=== PATIENT | female | born 1955 | race Two or more races ===

== ENCOUNTER 2018-12-12 11:34 | Inpatient (IN) | payer BC, MEDICAID ==
[~2018-12-12] VITALS: Ht 167.6 cm; Wt 111.8 kg
[~2018-12-12 11:34] MED LIST: BUTACAP64 PO; FOLI1TAB6; INSLANTI; PANT40T PO
[2018-12-12 12:31] LABS: INR 0.98 (0.9-1.15); Partial Thromboplastin Time 27.1 sec (23.78-33.04); Prothrombin Time 10.5 sec (9.27-12.13)
[2018-12-12 12:36] LABS: Albumin 2.3 g/dL (3.4-5.0); Magnesium 1.3 mg/dL (1.6-2.6); Potassium 3.6 mmol/L (3.5-5.1)
[2018-12-12 12:44] LABS: BUN/Creatinine Ratio 3.5; Bilirubin, Total 0.5 mg/dL (0.2-1.0); Total Protein 6.6 g/dL (6.4-8.2)
[2018-12-12 12:54] LABS: Basophils # (auto) 0.1 uL; Basophils % (auto) 0.6 % (0.0-2.0); Eosinophils # (auto) 0.2 uL; Eosinophils % (auto) 1.2 % (0.0-7.0); Hematocrit 34.5 % (36.0-46.0); Hemoglobin 11.4 g/dL (12.2-16.2); Lymphocytes # (auto) 1.1 uL; Monocytes % (auto) 6.4 % (0.0-12.0); Neutrophils # (auto) 13.5 uL; Neutrophils % (auto) 84.8 % (37.0-80.0); Platelet Count (auto) 199 10^3/uL (140-450); Red Blood Cells 3.67 10^6/uL (4.0-5.20); Red Cell Distribution Width 14.9 % (11.8-14.3); White Blood Cell 15.9 10^3/uL (4.4-10.8)
[2018-12-12] MEDS ORDERED: ACETAMINOPHEN 325 MG TAB PO ONE (14:45)
[2018-12-12 14:47] LABS: Basophils # (auto) 0.1 uL; Basophils % (auto) 0.7 % (0.0-2.0); Eosinophils # (auto) 0.1 uL; Eosinophils % (auto) 0.9 % (0.0-7.0); Hematocrit 34.1 % (36.0-46.0); Hemoglobin 11.4 g/dL (12.2-16.2); Lymphocytes # (auto) 1.1 uL; Mean Corpuscular Hemoglobin 31.4 pg (28.0-32.0); Mean Corpuscular Hgb Conc. 33.4 g/dL (32.0-36.0); Mean Corpuscular Volume 93.9 fL (80.0-100.0); Monocytes # (auto) 0.9 uL; Neutrophils % (auto) 85.4 % (37.0-80.0); Nucleated Red Blood Cells % 0.1 %; Platelet Count (auto) 233 10^3/uL (140-450); Red Blood Cells 3.63 10^6/uL (4.0-5.20); Red Cell Distribution Width 14.9 % (11.8-14.3); White Blood Cell 15.3 10^3/uL (4.4-10.8)
[2018-12-12 15:02] LABS: INR 0.98 (0.9-1.15); Prothrombin Time 10.5 sec (9.27-12.13)
[2018-12-12 15:04] LABS: Albumin 2.2 g/dL (3.4-5.0); BUN/Creatinine Ratio 2.7; Potassium 3.6 mmol/L (3.5-5.1)
[2018-12-12 15:07] LABS: Bilirubin, Total 0.5 mg/dL (0.2-1.0); Total Protein 6.8 g/dL (6.4-8.2)
[2018-12-12 15:08] LABS: Lactic Acid w/Reflex 3.3 mmol/L (0.4-2.0)
[2018-12-12] MEDS ORDERED: NOREPINEPHRINE 8 MG/250ML KIT 250 ML IV SCH (15:31)
[2018-12-12] MEDS ORDERED: NOREPINEPHRINE 8 MG/250ML KIT 250 ML IV ONE (15:36)
[2018-12-12] MEDS ORDERED: MORPHINE SULFATE 4 MG/ML SYR/VIAL IV PRN (16:00)
[2018-12-12] MEDS ORDERED: NITROGLYCERIN 0.4 MG SL TAB SL PRN (16:00)
[2018-12-12] MEDS ORDERED: SODIUM CHLORIDE 0.9% 500 ML IV ONE (16:00)
[2018-12-12] MEDS ORDERED: VANCOMYCIN PER PHARMACY 0 MG IV SCH (16:00)
[2018-12-12] MEDS ORDERED: MORPHINE SULFATE 4 MG/ML SYR/VIAL ONE (16:52)
[2018-12-12] MEDS: MORPHINE SULF INJ 2 MG/ML SYRINGE 1ML IV PRN ×2 (17:13→21:39)
[2018-12-12] MEDS: NOREPINEPHRINE 8 MG/250ML KIT 250 ML IV SCH (17:14)
[2018-12-12] MEDS: HYDROcodone-ACET 5/325MG TAB PO PRN (17:25)
[2018-12-12] MEDS: IPRATROPIUM BROM 0.5 MG/2.5ML INH SOL NEB SCH (19:20)
[2018-12-12] MEDS: ALBUTEROL SULF 2.5 MG/0.5ML(0.5%) NEB SOLN NEB SCH (19:20)
[2018-12-12] MEDS ORDERED: VANCOMYCIN 1GM/250ML 250 ML IV ONE (20:00)
[2018-12-12] MEDS: PIPERACILLIN-TAZOB 2.25GM 50 ML IV SCH (23:15)
[2018-12-13] MEDS: HYDROcodone-ACET 5/325MG TAB PO PRN (00:45)
[2018-12-13 01:03] VITALS: BP 120/75
[2018-12-13] MEDS: MORPHINE SULF INJ 2 MG/ML SYRINGE 1ML IV PRN ×3 (04:26→18:09)
[2018-12-13] MEDS: ONDANSETRON HCL 4 MG/2 ML VIAL IV PRN (04:45)
[2018-12-13 05:42] LABS: Basophils # (auto) 0.1 uL; Basophils % (auto) 0.6 % (0.0-2.0); Eosinophils # (auto) 0.2 uL; Eosinophils % (auto) 1.3 % (0.0-7.0); Hemoglobin 10.4 g/dL (12.2-16.2); Lymphocytes # (auto) 0.8 uL; Mean Corpuscular Hemoglobin 31.9 pg (28.0-32.0); Mean Corpuscular Hgb Conc. 33.6 g/dL (32.0-36.0); Mean Corpuscular Volume 94.8 fL (80.0-100.0); Monocytes # (auto) 0.8 uL; Monocytes % (auto) 5.7 % (0.0-12.0); Neutrophils # (auto) 11.8 uL; Neutrophils % (auto) 86.4 % (37.0-80.0); Platelet Count (auto) 204 10^3/uL (140-450); Red Blood Cells 3.27 10^6/uL (4.0-5.20); Red Cell Distribution Width 14.9 % (11.8-14.3); White Blood Cell 13.6 10^3/uL (4.4-10.8)
[2018-12-13 06:02] LABS: BUN/Creatinine Ratio 2.9; Potassium 3.4 mmol/L (3.5-5.1)
[2018-12-13] MEDS: IPRATROPIUM BROM 0.5 MG/2.5ML INH SOL NEB SCH ×4 (06:03→19:35)
[2018-12-13] MEDS: ALBUTEROL SULF 2.5 MG/0.5ML(0.5%) NEB SOLN NEB SCH ×4 (06:03→19:35)
[2018-12-13] MEDS ORDERED: DEXTROSE (50%) 50ML SYRG IV PRN (06:45)
[2018-12-13] MEDS: InsuLIN REG 1unit/0.01ml Soln (100units/ml) SC SCH ×4 (06:47→20:00)
[2018-12-13] MEDS: VASOPRESSIN 50 UNITS in D5W 5% 247.5 ML IV SCH (07:00)
[2018-12-13] MEDS ORDERED: ENOXAPARIN SOD 100 MG/1 ML SYRINGE SC ONE (08:45)
[2018-12-13] MEDS: ACCU-CHEK COMFORT CURVE STRIP VI SCH ×4 (08:50→20:00)
[2018-12-13] MEDS: PIPERACILLIN-TAZOB 2.25GM 50 ML IV SCH ×2 (10:30→22:26)
[2018-12-13] MEDS ORDERED: LIDOCAINE 2%HCL (LOCAL ANESTH.) INJ 20ML MDV ONE (14:12)
[2018-12-13] MEDS ORDERED: IODIXANOL 320MG/ML 100ML BTL IV ONE ×2 (14:13→16:27)
[2018-12-13] MEDS ORDERED: fentaNYL CITRATE 100 MCG/2 ML VL ONE (14:51)
[2018-12-13] MEDS ORDERED: ANGIOMAX 250 MG VIAL IV ONE (14:51)
[2018-12-13] MEDS ORDERED: MIDAZOLAM HCL 1MG/1ML-2 ML VIAL ONE (14:52)
[2018-12-13] MEDS ORDERED: SODIUM CHL 0.9% 50 ML ONE (14:52)
[2018-12-13] MEDS: SODIUM CHLORIDE 0.9% 1,000 ML IV SCH (15:00)
--- NOTE | 2018-12-13 15:03 | NUR ---
WOUND CARE NOTE: Patient cannot be assessed at this time. Patient has been in cathlab since 1440. Will follow up with consult after cathlab.
[2018-12-13] MEDS: NOREPINEPHRINE 8 MG/250ML KIT 250 ML IV SCH (15:48)
[2018-12-13] MEDS ORDERED: EPTIFIBATIDE INJ (2MG/ML) 10ML VIAL IV ONE (16:36)
[2018-12-13] MEDS ORDERED: EPTIFIBATIDE DRIP(0.75MG/ML) 100 ML IV ONE (16:38)
[2018-12-13] MEDS ORDERED: SODIUM CHLORIDE 0.9% 500 ML IV ONE (17:30)
[2018-12-13] MEDS: CLOPIDOGREL BISULFATE 75 MG TAB PO SCH (19:08)
[2018-12-13 19:49] LABS: Basophils # (auto) 0.2 uL; Eosinophils # (auto) 0.2 uL; Eosinophils % (auto) 0.8 % (0.0-7.0); Hemoglobin 10.3 g/dL (12.2-16.2); Lymphocytes # (auto) 0.7 uL; Lymphocytes % (auto) 4.1 % (10.0-50.0); Mean Corpuscular Hemoglobin 30.5 pg (28.0-32.0); Mean Corpuscular Hgb Conc. 31.1 g/dL (32.0-36.0); Mean Corpuscular Volume 97.9 fL (80.0-100.0); Monocytes # (auto) 0.9 uL; Monocytes % (auto) 5.3 % (0.0-12.0); Neutrophils % (auto) 88.8 % (37.0-80.0); Nucleated Red Blood Cells % 0.1 %; Platelet Count (auto) 245 10^3/uL (140-450); Red Blood Cells 3.37 10^6/uL (4.0-5.20); Red Cell Distribution Width 15.6 % (11.8-14.3)
[2018-12-13 22:45] VITALS: BP 111/46
--- NOTE | 2018-12-13 23:00 | NUR ---
ARRIVAL NOTE PT ARRIVED TO ICU FROM SR. PRICING ANALYST AND PLACED IN ROOM 102. PT ATTACHED TO ICU MONITOR. VS ON ARRIVAL, HR111, RR24, BP 111/46, O2 95%. PT ALERT AND ORIENTEDX4. PT ABLE TO ASSIST WITH TURNS. PT ORIENTED TO NIGHT NURSE, CALL LIGHT, HOSPITAL POLICY AND VISITING HOURS. DRESSING ON RIGHT GROIN HAS MINIMAL BLOOD. AREA AROUND GROIN INSERTION SITE SOFT AND NON TENDER. PULSES IN BOTH LOWER EXTREMITIES HEARD WITH DOPPLER. PT DENIES PAIN EXCEPT WHEN TURNING AT THIS TIME. RECEIVED PT ON 22 MCG OF LEVO. IV SITE 20 IN BOTH RIGHT AND LEFT AC. IV'S BENIGN. BED LOCKED AND IN LOWEST POSITION, SAFETY PRECAUTIONS IN PLACE. WILL MONITOR PT CAREFULLY.
[2018-12-13 23:19] VITALS: BP 111/46
[2018-12-14] VITALS (82 sets, daily range): BP systolic 68–147; BP diastolic 33–76
--- NOTE | 2018-12-14 04:10 | NUR ---
WOUND CARE PHOTOS TAKEN OF BOTH FEET. FORM PLACED IN WOUND CARE FOLDER.
[2018-12-14] MEDS: ACCU-CHEK COMFORT CURVE STRIP VI SCH ×6 (04:19→20:29)
[2018-12-14] MEDS: InsuLIN REG 1unit/0.01ml Soln (100units/ml) SC SCH ×6 (04:19→20:29)
--- NOTE | 2018-12-14 05:40 | NUR ---
PT CONFUSED, THINKS "NUHA" IS IN THE ROOM TALKING WITH HER, REORIENTED PT. PT DOES NOT APPEAR TO BE IN ANY DISTRESS. WILL CONTINUE WITH CARE.
[2018-12-14] MEDS: ALBUTEROL SULF 2.5 MG/0.5ML(0.5%) NEB SOLN NEB SCH ×4 (06:07→18:59)
[2018-12-14] MEDS: IPRATROPIUM BROM 0.5 MG/2.5ML INH SOL NEB SCH ×4 (06:07→18:59)
[2018-12-14 07:25] LABS: Hematocrit 27.6 % (36.0-46.0); Hemoglobin 8.9 g/dL (12.2-16.2); Mean Corpuscular Hemoglobin 30.4 pg (28.0-32.0); Mean Corpuscular Hgb Conc. 32.3 g/dL (32.0-36.0); Mean Corpuscular Volume 94.1 fL (80.0-100.0); Platelet Count (auto) 267 10^3/uL (140-450); Red Blood Cells 2.94 10^6/uL (4.0-5.20); Red Cell Distribution Width 14.9 % (11.8-14.3)
[2018-12-14 07:36] LABS: Albumin 1.7 g/dL (3.4-5.0); Calcium 7.6 mg/dL (8.5-10.1); Magnesium 1.5 mg/dL (1.6-2.6); Potassium 3.5 mmol/L (3.5-5.1)
[2018-12-14 07:40] LABS: BUN/Creatinine Ratio 3.1; Bilirubin, Total 0.4 mg/dL (0.2-1.0); Total Protein 5.9 g/dL (6.4-8.2)
--- NOTE | 2018-12-14 07:50 | NUR ---
ASSESSMENT DONE AT THIS TIME. PT IS A/O X4 BUT IS FORGETFUL AND ASKS INAPPROPRIATE QUESTIONS "WHERE IS [place]" "IS THAT MAN STILL IN HERE". REORIENTED. ABD SOFT NONTENDER; HAS PD CATH LLQ, SITE CLEAN. DOES HER PD AT NIGHT. RT GROIN IS VERY TENDER TO TOUCH, SITE IS CLEAN; SURROUNDING TISSUE EDEMATOUS BUT SOFT WITH FAIR PULSE. BILAT PEDAL PULSES AUSCULTATED VIA DOPPLER, LT FT IS WARMER THAN RT. TIPS OF LT TOES CYANOTIC. HAS MUCH PAIN IN LT LEG; REPOSITIONING HELPS.
[2018-12-14 07:54] LABS: INR 1.08 (0.9-1.15); Partial Thromboplastin Time 46.4 sec (23.78-33.04); Prothrombin Time 11.5 sec (9.27-12.13)
[2018-12-14] MEDS: MORPHINE SULF INJ 2 MG/ML SYRINGE 1ML IV PRN ×2 (07:55→22:07)
[2018-12-14 07:57] LABS: Lactic Acid w/Reflex 5.5 mmol/L (0.4-2.0)
[2018-12-14 08:09] LABS: Basophils % (manual) 0 (0.0-2.0); Blast Cells 0; Eosinophils % (manual) 0 (0-7); Metamyelocytes % 0; Myelocytes % 0; Promyelocytes % 0; Reactive Lymphocytes 0
[2018-12-14 08:18] LABS: Band Neutrophils % (manual) 7; Lymphocytes % (manual) 2 (10.0-50.0); Monocytes % (manual) 1 (0-12)
--- NOTE | 2018-12-14 09:30 | NUR ---
DR. NINO IN. UPDATED ON CONNDITION. HE EXAMINED FT AND RT GROIN. WE REVIEWED ANTICOAGULANTS AND SHE IS TO REMAIN ON COUMADIN, PLAVIX AND LOVENOX. HE SPOKE WITH PT AND ABOUT PROCEDURE YESTERDAY AND POC.
[2018-12-14] MEDS ORDERED: WARFARIN SODIUM 2.5 MG TAB PO SCH (10:00)
[2018-12-14] MEDS: PANTOPRAZOLE 40 MG TAB PO SCH (10:27)
[2018-12-14] MEDS: ENOXAPARIN SOD 100 MG/1 ML SYRINGE SC SCH (10:27)
[2018-12-14] MEDS: CLOPIDOGREL BISULFATE 75 MG TAB PO SCH (10:27)
[2018-12-14] MEDS: PIPERACILLIN-TAZOB 2.25GM 50 ML IV SCH ×2 (10:27→22:03)
--- NOTE | 2018-12-14 11:30 | NUR ---
DR. BEARD HERE. UPDATED ON CONDITION, LEVOPHED TITRATION
--- NOTE | 2018-12-14 12:00 | NUR ---
REASSESS GROIN SOFT, LESS EDEMATOUS. PEDAL PULSES REMAIN STRONG VIA DOPPLER. CONT WITH PERIODS CONFUSION AND RESTLESSNESS
[2018-12-14] MEDS: NOREPINEPHRINE 8 MG/250ML KIT 250 ML IV SCH ×2 (12:31→20:29)
[2018-12-14] MEDS: SODIUM CHLORIDE 0.9% 1,000 ML IV SCH (16:30)
--- NOTE | 2018-12-14 16:49 | NUR ---
WOUND CARE NOTE: Wound care consult received from nursing. Patient is a 63 yo female admitted for septic shock. Patient with a history of ESRD on PD/HD, diabetes, metastatic lung cancer, [place], and CVA. Patient is resting, no signs/symptoms of pain. Last Dung score is 10. Spouse at bedside. Reviewed photos taken on admission by nursing. Reviewed photos and discussed with bedside RN, Any. Patient noted to have several scabs to right foot toes. No open draining wounds noted. No other open wounds. RECOMMENDATIONS: Dietary consult; Turn q2hrs; Nursing to cleanse skin with mild soap and water, pat dry, apply moisturizing lotion to bilateral upper and lower extremities BID/PRN, apply ZGUARD to buttocks BID/PRN soiling; wound care team to follow while Dung is <18.
--- NOTE | 2018-12-14 17:30 | NUR ---
RENITA LOADED THE PERITONEAL DIALYSIS MACHINE INSTRUCTIONS ON HOW TO RUN REC'D. HE REQUESTED WE START AT 1900.
--- NOTE | 2018-12-14 17:58 | NUR ---
REASSESS PULSES REMAIN VIA DOPPLER. HAVING INCREASED PERIODS QUIET THEN RESTLESS AND ITCHING.LEVOPHED IS STILL AT 15MCG, UNABLE TO DECREASE ANY FURTHER. RT GROIN SOFT
--- NOTE | 2018-12-14 19:00 | NUR ---
PERITONEAL DIALYSIS STARTED
--- NOTE | 2018-12-14 19:14 | NUR ---
DR. MAX RETURNED CALL NO EXTUBATION. RT BANUELOS Addendum: 12/14/18 at 1929 by Any Espinosa RN KULWANT MELARA
--- NOTE | 2018-12-14 19:30 | NUR ---
PATIENT ASKED FOR BEDPAN. SMALL THICK LIQUID DUSKY GREEN STOOL. PERICARE DONE. ZGUARD APPLIED. PT STATED THAT HER ANNE-MARIE AREA IS SORE. DOPPLER LEFT PEDAL...STRONG, REGULAR.
--- NOTE | 2018-12-14 19:41 | NUR ---
ADMITTED ON 12/12/2018 FOR SEVERE LEFT LEG PAIN. OVEREDGE MACHINE OPERATOR PROCEDURE: REMOVED CLOTS AND NOW HAVE A PEDAL PULSE WITH DOPPLER. LEFT FOOT IS WARMER THAN RIGHT. SMALL SCABBED AREAS ON BOTH FEET/TOES. ON COUMADIN/PLAVIX/LOVENOX. TIPS OF TOES ARE PURPLE. PERITONEAL DIALYSIS STARTED AT 1900. LEFT ABDOMINAL PERITONEAL CATHETER TO AUTOMATED MACHINE. DWELL 1 OF 4. SITE OF PERITONEAL CATHETER IS CLEAN AND DRY. LEVOPHED FOR BLOOD PRESSURE SUPPORT. NSR WITHOUT ECTOPY. PERIPHERAL 20 G IN RAC AND LAC. NS AT 60CC/HR. LEVOPHED AT 15 MCG/MIN. HAS A RIGHT GROIN DRESSING THAT IS CLEAN, DRY. NO HEMATOMA AT SITE. PT IS BLIND. INTRODUCED MYSELF. PATIENT IS ON A BEDPAN WITH LIQUID DUSKY GREEN STOOLS. PAINFUL FOR HER TO TURN TO LEFT SIDE. PAIN: BACK PAIN.
--- NOTE | 2018-12-14 20:30 | NUR ---
PATIENT STATED THAT THE CREAM ON HER ANNE-MARIE AREA WAS NOT TAKING THE STING OUT. WHEN WE TURNED HER SHE HAD A LIQUID STOOL AGAIN. ANNE-MARIE CARE, CHANGED THE PAD. SHE THEN HAD ANOTHER INCONTINENT LIQUID DUSKY GREEN STOOL. PERICARE DONE. ISSAC APPLIED. COMPLAINED OF A SORE THROAT. GAVE HER SOME ICE CHIPS.
--- NOTE | 2018-12-14 22:00 | NUR ---
CALLING OUT A LOT COMPLAINING OF ANNE-MARIE AREA PAIN, SORE THROAT. WHEN YOU TURN HER SHE IS VERY PAINFUL. MORPHINE GIVEN. SR, 1ST DEGREE AV BLOCK. NO ECTOPY.
--- NOTE | 2018-12-14 23:46 | NUR ---
FINGERS ARE COLD, UNABLE TO ALLIGATOR SHEAR OPERATOR PULSE OX. PLACED HAND/ARM IN A WARM BLANKET
[2018-12-15] VITALS (82 sets, daily range): BP systolic 53–127; BP diastolic 28–84
[2018-12-15] MEDS: InsuLIN REG 1unit/0.01ml Soln (100units/ml) SC SCH ×6 (00:07→21:34)
[2018-12-15] MEDS: ACCU-CHEK COMFORT CURVE STRIP VI SCH ×6 (00:08→21:34)
[2018-12-15] MEDS: SODIUM CHLORIDE 0.9% 1,000 ML IV SCH ×2 (00:20→04:00)
--- NOTE | 2018-12-15 01:26 | NUR ---
ASKING FOR MORPHINE. ALLERGIC TO CODEINE IN [facility]. NO RESULTS ON BEDPAN. NSR WITHOUT ECTOPY. PUT PULSE OX ON RIGHT EAR. FINGERS WOULD NOT RESIN COATER.
[2018-12-15] MEDS: MORPHINE SULF INJ 2 MG/ML SYRINGE 1ML IV PRN ×2 (01:38→21:49)
[2018-12-15] MEDS: NOREPINEPHRINE 8 MG/250ML KIT 250 ML IV SCH (04:00)
[2018-12-15 04:48] LABS: INR 1.6 (0.9-1.15); Partial Thromboplastin Time 62.5 sec (23.78-33.04); Prothrombin Time 16.7 sec (9.27-12.13)
[2018-12-15 04:55] LABS: Lactic Acid w/Reflex 4.7 mmol/L (0.4-2.0)
--- NOTE | 2018-12-15 05:00 | NUR ---
PERITONEAL DIALYSIS FINISHED. DISCONNECTED SYSTEM. NEW CAP APPLIED. PERITONEAL SITE CLEANED WITH CHLOROPREP AND DRESSED WITH A BIFURCATED DRESSING AND SECURED WITH TAPE. RIGHT GROIN DRESSING REMOVED. SITE SHOWS NO REDNESS OR SWELLING. SMALL HEMATOMA AT SITE. CLEANED WITH CHLOROPREP AND REDRESSED. COVERED WITH CLEAR DRESSING. DOPPLER BOTH PEDALS. GOOD PULSE WITH DOPPLER. RIGHT FOOT COOLER THAN LEFT. LOTS OF TROUBLE TONIGHT WITH THE CUFF STAYING IN PLACE.
[2018-12-15 05:01] LABS: Albumin 1.3 g/dL (3.4-5.0); BUN/Creatinine Ratio 3.5; Calcium 6.1 mg/dL (8.5-10.1); Magnesium 1.4 mg/dL (1.6-2.6)
[2018-12-15 05:03] LABS: Bilirubin, Total 0.3 mg/dL (0.2-1.0); Total Protein 4.9 g/dL (6.4-8.2)
[2018-12-15 05:45] LABS: Basophils # (auto) 0 uL; Basophils % (auto) 0.2 % (0.0-2.0); Eosinophils # (auto) 0.1 uL; Eosinophils % (auto) 0.3 % (0.0-7.0); Hematocrit 22.2 % (36.0-46.0); Hemoglobin 7.3 g/dL (12.2-16.2); Lymphocytes # (auto) 0.6 uL; Lymphocytes % (auto) 3.2 % (10.0-50.0); Mean Corpuscular Hemoglobin 31.3 pg (28.0-32.0); Mean Corpuscular Volume 94.7 fL (80.0-100.0); Monocytes # (auto) 1.1 uL; Monocytes % (auto) 5.8 % (0.0-12.0); Neutrophils # (auto) 17.8 uL; Neutrophils % (auto) 90.5 % (37.0-80.0); Platelet Count (auto) 249 10^3/uL (140-450); Red Blood Cells 2.35 10^6/uL (4.0-5.20); Red Cell Distribution Width 15.3 % (11.8-14.3); White Blood Cell 19.6 10^3/uL (4.4-10.8)
[2018-12-15] MEDS: ALBUTEROL SULF 2.5 MG/0.5ML(0.5%) NEB SOLN NEB SCH ×4 (06:57→19:00)
[2018-12-15] MEDS: IPRATROPIUM BROM 0.5 MG/2.5ML INH SOL NEB SCH ×4 (06:57→19:00)
--- NOTE | 2018-12-15 08:00 | NUR ---
ASSESSMENT PULSES STILL OBTAINED VIA DOPPLER. IS MORE MOBILE. LOC UNCHANGED-YELLS WHENEVER TOUCHED OR MOVED. BP IS HARD TO OBTAIN AT TIMES. FREQUENT NEED TO CHANGE SITES, CUFF, CUFF SIZE. IV RT AC HARD TO FLUSH BUT ABLE TO DRAW BLOOD FROM
[2018-12-15] MEDS: VASOPRESSIN 50 UNITS in D5W 5% 247.5 ML IV SCH (08:36)
[2018-12-15] MEDS ORDERED: VANCOMYCIN 1GM/250ML 250 ML IV ONE (09:00)
[2018-12-15] MEDS: PANTOPRAZOLE 40 MG TAB PO SCH (09:49)
[2018-12-15] MEDS: CLOPIDOGREL BISULFATE 75 MG TAB PO SCH (09:49)
[2018-12-15] MEDS: ENOXAPARIN SOD 100 MG/1 ML SYRINGE SC SCH (09:50)
[2018-12-15] MEDS: PIPERACILLIN-TAZOB 2.25GM 50 ML IV SCH ×2 (09:50→21:48)
--- NOTE | 2018-12-15 10:30 | NUR ---
IV RT AC LEAKING. MIDLINE PLACED RT UPPER ARM WITH EASE.
[2018-12-15] MEDS ORDERED: MAGNESIUM SULFATE 1GM/100ML 100 ML IV ONE (11:00)
--- NOTE | 2018-12-15 11:13 | NUR ---
MIDLINE INSERTION MIDLINE INSERTION TO R UPPER ARM VIA THE BASILIC VEIN. 18G 10 CM BLOOD RETURN OBTAINED AND FLUSHES EASILY. SECURED WITH [employer], SECUREMENT DEVICE AND TRANSPARENT DRESSING
--- NOTE | 2018-12-15 11:44 | NUR ---
NUTRITION CONSULT/ASSESSMENT NOTES Please refer to link notes of nutrition screen form filed under the intervention section of the plan of care for further details. Est. Needs: 1800 kcal to 2300 kcal (20-25 kcal/kgBW), 92 gms to 138 gms pro (1.0-1.5 gms/kgBW d/t ESRD on PD, severe hypoalbuminemia). Will continue to monitor pertinent labs and reassess nutrient needs prn Thank you for this consult. Addendum: 12/15/18 at [address] Amended: Links added.
[2018-12-15] MEDS ORDERED: POTASSIUM EFFERVESENT TAB 25 MEQ GT ONE (12:00)
--- NOTE | 2018-12-15 12:30 | NUR ---
CONT DIFFICULT TO OBTAIN BP. LEVOPHED HAS REMAINED AT 18MCG. DR. BEARD WAS IN;UPDATED ON CONDITION.
[2018-12-15] MEDS ORDERED: WARFARIN SODIUM 5 MG TAB PO ONE (17:00)
--- NOTE | 2018-12-15 18:51 | NUR ---
PERITONEAL DIALYSIS BEGUN
--- NOTE | 2018-12-15 20:00 | NUR ---
ADMITTED WITH HYPONATREMIA, SEPTIC SHOCK, GENERALIZED WEAKNESS AND SEVERE LEFT LEG PAIN. FROM ER WENT TO PARENT AIDE WHERE THEY REMOVED CLOTS FROM THE LEFT LEG VESSELS AND OPENED UP THE PULSE IN THE LEFT FOOT. WE NOW DOPPLER THE PULSE IN BOTH FEET. TIPS OF TOES ARE PURPLE AND TOES ON BOTH FEET HAVE SCABS. NO OPEN WOUNDS. NOW HAS A MIDLINE IN THE GRACE AND A LEFT AC 20 GUAGE. RIGHT GROIN DRESSING IS CLEAN AND DRY. TINY HEMATOMA AT SITE OF ENTRY FROM THE PARENT AIDE PROCEDURE. PERITONEAL DIALYSIS SETUP BY JUST BEFORE 1900. AUTOMATIC PERITONEAL DIALYSIS MACHINE RUNNING. DRESSING AT THE SITE OF PERITONEAL CATHETER IS CLEAN AND DRY. NORMAL SALINE AT 60CC/HR AND LEVOPHED AT 15 MCG/MIN. NSR WITHOUT ECTOPY. PATIENT STATED SHE HAS BEEN BLIND FOR 3 YEARS . CAN ONLY SEE SHADOWS. RECEIVED MAG SULFATE 1 GM, 50 MEQ OF KCL PO AND ONE UNIT OF PACKED CELLS FOR A HG OF 7.3. ON A RENAL DIET AND IS CURRENTLY NOT EATING MUCH OF WHAT IS OFFERED. ECHO: EF 60%. ORIENTED AND YET HAS MOMENTARY STATEMENT OF CONFUSION. SOME SHORT TERM MEMORY LOSS. ACCUCHECK IS NOW AC / HS. WE HAVE HAD TROUBLE GETTING HER BLOOD PRESSURE . NOW WE ARE USING A SMALL CUFF ON THE LOWER LEFT ARM. NA 125. WBC 21.
[2018-12-15] MEDS: INSULIN LANTUS (GLARGINE) 1 /0.01ml (100units/ml) SC SCH (21:35)
[2018-12-15] MEDS: SODIUM BICARBONATE 650 MG TAB PO SCH (21:48)
--- NOTE | 2018-12-15 21:51 | NUR ---
PAIN MED GIVEN FOR RIGHT GROIN, LOWER ABDOMINAL PAIN.
[2018-12-16] VITALS (80 sets, daily range): BP systolic 87–145; BP diastolic 31–89
--- NOTE | 2018-12-16 | NUR ---
REFUSED TO TURN. DENIES PAIN. PEDAL PULSES VERIFIED WITH DOPPLER. LEFT FOOT SWOLLEN. LEFT FOOT WARMER THAN RIGHT. PERITONEAL DIALYSIS RUNNING. NSR/1ST DEGREE AV BLOCK WITHOUT ECTOPY. MIDLINE SHOWS NO REDNESS OR SWELLING.
--- NOTE | 2018-12-16 02:00 | NUR ---
REFUSING TO MOVE SUBSTANTIALLY. NSR WITH FIRST DEGREE AV BLOCK. BEGINNING TO TITRATE LEVOPHED DOWN. PERITONEAL DIALYSIS ON BAG 4. NO ECTOPY. MIDLINE DRESSING SHOWS NO REDNESS OR SWELLING. NO TROUBLE WITH CUFF PRESSURES TONIGHT. NO DIARRHEA.ANURIC.
--- NOTE | 2018-12-16 04:00 | NUR ---
CHANGED PULL SHEET AND PAD. REPOSITIONED TO RIGHT SIDE. NSR WITHOUT ECTOPY. LAB MURALI BLOOD. LAC IV REMOVED, IT WAS LEAKING AFTER A FLUSH. PATIENT COMPLAINING OF ITCHING SKIN. LOTION APPLIED TO BACK. PEDAL PULSE CHECK WITH DOPPLER. LEFT FOOT SWOLLEN. LEFT FOOT WARMER THAN RIGHT
[2018-12-16 04:21] LABS: Basophils # (auto) 0 uL; Basophils % (auto) 0.3 % (0.0-2.0); Eosinophils # (auto) 0.3 uL; Eosinophils % (auto) 1.6 % (0.0-7.0); Hematocrit 25.5 % (36.0-46.0); Hemoglobin 8.4 g/dL (12.2-16.2); Lymphocytes # (auto) 0.6 uL; Lymphocytes % (auto) 3.2 % (10.0-50.0); Mean Corpuscular Hemoglobin 30.6 pg (28.0-32.0); Monocytes # (auto) 0.6 uL; Monocytes % (auto) 3.6 % (0.0-12.0); Neutrophils # (auto) 16.4 uL; Neutrophils % (auto) 91.3 % (37.0-80.0); Platelet Count (auto) 263 10^3/uL (140-450); Red Blood Cells 2.74 10^6/uL (4.0-5.20); Red Cell Distribution Width 15.9 % (11.8-14.3)
[2018-12-16 04:36] LABS: INR 2.54 (0.9-1.15); Partial Thromboplastin Time 65.4 sec (23.78-33.04); Prothrombin Time 25.8 sec (9.27-12.13)
[2018-12-16 04:42] LABS: Lactic Acid w/Reflex 2.8 mmol/L (0.4-2.0)
[2018-12-16 04:43] LABS: Potassium 3.6 mmol/L (3.5-5.1)
[2018-12-16 04:52] LABS: Albumin 1.4 g/dL (3.4-5.0); BUN/Creatinine Ratio 3.9; Bilirubin, Total 0.5 mg/dL (0.2-1.0); Calcium 7.1 mg/dL (8.5-10.1); Magnesium 1.8 mg/dL (1.6-2.6); Total Protein 5.3 g/dL (6.4-8.2)
[2018-12-16] MEDS: NOREPINEPHRINE 8 MG/250ML KIT 250 ML IV SCH ×2 (05:08→20:32)
--- NOTE | 2018-12-16 06:00 | NUR ---
REPOSITIONED SELF. DRANK A SIP OF WATER. DECREASING THE LEVOPHED. PERITONEAL DIALYSIS FINISHED AROUND 4:30. SYSTEM CLAMPED AND CAPPED OFF.
[2018-12-16] MEDS: ACCU-CHEK COMFORT CURVE STRIP VI SCH ×4 (06:40→22:17)
[2018-12-16] MEDS: InsuLIN REG 1unit/0.01ml Soln (100units/ml) SC SCH ×4 (06:40→22:17)
[2018-12-16] MEDS: IPRATROPIUM BROM 0.5 MG/2.5ML INH SOL NEB SCH ×4 (06:44→18:19)
[2018-12-16] MEDS: ALBUTEROL SULF 2.5 MG/0.5ML(0.5%) NEB SOLN NEB SCH ×4 (06:44→18:19)
--- NOTE | 2018-12-16 07:55 | NUR ---
ASSESS- PT. LYING IN BED AWAKE, ALERT AND ORIENTED TIMES FOUR. DENIES ANY PAIN OR DISCOMFORT. LEGALLY BLIND, STATED SHE SEES SHADOWS. LUNGS CLEAR TANIYA. INSPIRATORY AND EXPIRATORY. NO SOB. O2 2L N/C. ABD. SOFT, FLAT, NON-TENDER. BOWEL SOUNDS ALL FOUR QUADRANTS. NO N/V. PERITONEAL DIALYSIS CATHETER INTACT TO LT. SIDE OF ABD. WITH DSG. D/I. RADIAL PULSES STRONG, PALPABLE TANIYA. LT. DORSALIS PEDAL PULSE STRONG WITH DOPPLER. RT. DORSALIS PEDAL PULSE STRONG WITH DOPPLER. LOWER EXT. WARM TO TOUCH TANIYA. WITH BRISK CAPILLARY REFILL. 1 PLUS EDEMA TANIYA. ANKLES. PT. IS ON LEVOPHED GTT. AT 8 MCGS. SBP 90'S-100'S. PT. IS ANURIC.
--- NOTE | 2018-12-16 09:30 | NUR ---
VISITING AT THE BS.
[2018-12-16] MEDS: SODIUM CHLORIDE 0.9% 1,000 ML IV SCH ×2 (09:40→17:00)
[2018-12-16] MEDS: ENOXAPARIN SOD 100 MG/1 ML SYRINGE SC SCH (09:52)
[2018-12-16] MEDS: PIPERACILLIN-TAZOB 2.25GM 50 ML IV SCH ×2 (09:52→21:59)
[2018-12-16] MEDS: SODIUM BICARBONATE 650 MG TAB PO SCH ×2 (09:53→21:59)
[2018-12-16] MEDS: CLOPIDOGREL BISULFATE 75 MG TAB PO SCH (09:53)
[2018-12-16] MEDS: PANTOPRAZOLE 40 MG TAB PO SCH (09:53)
--- NOTE | 2018-12-16 10:40 | NUR ---
PT. HAD. SM. LIQUID BROWN STOOL ON BEDPAN AND PADS. ANNE-MARIE CARE DONE AND LINENS CHANGED. APPLIED BARRIER CREAM TO BUTTOCKS TANIYA.
[2018-12-16] MEDS: MORPHINE SULF INJ 2 MG/ML SYRINGE 1ML IV PRN ×2 (10:55→16:42)
--- NOTE | 2018-12-16 10:55 | NUR ---
PT. HAVING PAIN IN TANIYA. LEGS AND BUTTOCKS 10 ON A SCALE OF 0-10. MED. WITH MORPHINE 1MG. IVP.
--- NOTE | 2018-12-16 10:55 | NUR ---
PT. HAVING PAIN IN LEGS AND BOTTOME SHE STATED 10 ON A SCALE OF 0-10. MED. WITH MORPHINE 1MG. IVP. AT THE BS.
--- NOTE | 2018-12-16 11:25 | NUR ---
PT. NO LONGER HAVING ANY PAIN OR DISCOMFORT.
--- NOTE | 2018-12-16 13:00 | NUR ---
DR. SALCEDO Provider/Hospitalist at bedside. GAVE UPDATE ON PT. SPOKE WITH PT. AND AT BS. NEW ORDERS RECEIVED.
[2018-12-16] MEDS ORDERED: metroNIDAZOLE 500 MG TAB PO ONE (13:15)
--- NOTE | 2018-12-16 16:15 | NUR ---
SET UP PERITONEAL DIALYSIS FOR PT. AND STARTED IT.
--- NOTE | 2018-12-16 16:42 | NUR ---
PT. HAVING PAIN TANIYA. LEGS 8 ON A SCALE OF 0-10. MOANING, ASKING FOR PAIN MEDICINE. MED. WITH MORPHINE 1 MG. IVP.
[2018-12-16] MEDS ORDERED: WARFARIN SODIUM 5 MG TAB PO ONE (17:00)
--- NOTE | 2018-12-16 17:30 | NUR ---
SBP ONE TEENS TO LOW 140'S. TITRATING LEVOPHED GTT. DOWN SLOWLY 0.5 MCG. AT A TIME TO KEEP SBP >90. MONITORING BP.
[2018-12-16] MEDS: Pro-Stat SF 30ml Vanilla PO SCH (18:00)
--- NOTE | 2018-12-16 19:45 | NUR ---
Opening Shift Note Assumed care of patient, awake and alert. No S/S of distress/SOB, on RA POX 100%, lung sounds clear/diminished upon auscultation. Patient turned and repositioned and had an episode of stool incontinence while turning. Stool is liquid and green/brown. Perineal area cleansed, linen change done and barrier cream applied to sacrum/perineum, noted to have excoriation. Patient repositioned for comfort. Peritoneal dialysis continues, per day shift RN report, starts PD daily. Levophed GTT at 6.5mcg, blood pressure in 90's to 110's systolic.Full assessment done: see interventions . Instructed on POC and to call for assist PRN, will continue to monitor for changes frequently.
[2018-12-16] MEDS: metroNIDAZOLE 500 MG TAB PO SCH (21:59)
[2018-12-16] MEDS: INSULIN LANTUS (GLARGINE) 1 /0.01ml (100units/ml) SC SCH (22:18)
[2018-12-17] VITALS (53 sets, daily range): BP systolic 69–141; BP diastolic 42–83
[2018-12-17] MEDS: MORPHINE SULF INJ 2 MG/ML SYRINGE 1ML IV PRN (00:27)
[2018-12-17] MEDS: ALBUTEROL SULF 2.5 MG/0.5ML(0.5%) NEB SOLN NEB SCH ×3 (00:42→12:03)
[2018-12-17] MEDS: IPRATROPIUM BROM 0.5 MG/2.5ML INH SOL NEB SCH ×3 (00:42→12:03)
--- NOTE | 2018-12-17 01:26 | NUR ---
Peritoneal dialysis end Patient VS remained stable throughout dialysis: see vs spreadsheet. Peritoneal catheter clamped and capped.
--- NOTE | 2018-12-17 02:01 | NUR ---
LEVOPHED GTT BP REMAINS STABLE IN 110'S SEE VS SPREADSHEET. LEVOPHED DRIP TITRATED TO 5MCG, CONTINUE TO MONITOR
[2018-12-17 03:55] LABS: Basophils # (auto) 0.1 uL; Basophils % (auto) 0.4 % (0.0-2.0); Eosinophils # (auto) 0.4 uL; Eosinophils % (auto) 3.4 % (0.0-7.0); Hematocrit 25.8 % (36.0-46.0); Hemoglobin 8.7 g/dL (12.2-16.2); Lymphocytes # (auto) 0.6 uL; Lymphocytes % (auto) 4.8 % (10.0-50.0); Mean Corpuscular Hemoglobin 30.5 pg (28.0-32.0); Mean Corpuscular Hgb Conc. 33.7 g/dL (32.0-36.0); Mean Corpuscular Volume 90.7 fL (80.0-100.0); Monocytes # (auto) 0.6 uL; Monocytes % (auto) 4.3 % (0.0-12.0); Neutrophils # (auto) 11.3 uL; Neutrophils % (auto) 87.1 % (37.0-80.0); Nucleated Red Blood Cells % 0.1 %; Platelet Count (auto) 236 10^3/uL (140-450); Red Blood Cells 2.84 10^6/uL (4.0-5.20); Red Cell Distribution Width 16.7 % (11.8-14.3); White Blood Cell 12.9 10^3/uL (4.4-10.8)
[2018-12-17 04:09] LABS: Prothrombin Time 45.7 sec (9.27-12.13)
[2018-12-17 04:12] LABS: INR 4.66 (0.9-1.15)
[2018-12-17 04:13] LABS: Partial Thromboplastin Time 74.9 sec (23.78-33.04)
--- NOTE | 2018-12-17 05:00 | NUR ---
AM CARE PATIENT REFUSED BATH THIS MORNING , STATED "IT'S TOO EARLY" PERINEAL AREA CLEANSED,PARTIAL BED LINEN CHANGE DONE AND BARRIER CREAM APPLIED TO SACRUM PATIENT REQUESTED SHOWER CAP SHOWER CAP PLACED, HAIR BRUSHED AND PLACED IN A PONYTAIL REPOSITIONED IN BED FOR COMFORT
[2018-12-17] MEDS: metroNIDAZOLE 500 MG TAB PO SCH ×3 (06:30→23:02)
[2018-12-17] MEDS: ACCU-CHEK COMFORT CURVE STRIP VI SCH ×4 (06:31→23:13)
[2018-12-17] MEDS: InsuLIN REG 1unit/0.01ml Soln (100units/ml) SC SCH ×4 (06:31→22:00)
[2018-12-17] MEDS: DEXTROSE (50%) 50ML SYRG IV PRN (06:32)
--- NOTE | 2018-12-17 06:45 | NUR ---
HYPOGLYCEMIA BLOOD SUGAR CHECK THIS MORNING IS 35, SECOND CHECK 35 D50 GIVEN PER PROTOCOL DT PATIENT BEING TOO SLEEPY/LETHARGIC BLOOD SUGAR RECHECK 122 PAGE OUT TO HOSPITALIST
--- NOTE | 2018-12-17 06:51 | NUR ---
SPOKE WITH HOSPITALIST MORE UPDATED HER ON BLOOD SUGAR THIS AM AND APTT AND INR NO NEW ORDERS
--- NOTE | 2018-12-17 07:04 | NUR ---
LEVOPHED GTT TITRATED TO 2MCG BP 138/63 CARE ENDORSED TO DAY SHIFT RN
--- NOTE | 2018-12-17 07:04 | NUR ---
PATIENT NOW RESTING WITH EYES CLOSED POX 100% ON RA HEART RATE 77 PATIENT AWAKE WAS ASKING FOR ORANGE JUICE EARLIER ORANGE JUICE PROVIDED, AND PATIENT WAS EDUCATED ON IMPORTANCE OF EATING FULL MEALS PATIENT VERBALIZED UNDERSTANDING
--- NOTE | 2018-12-17 07:42 | NUR ---
RECHECK BLOOD SUGAR 91, APPLE JUICE PROVIDED
--- NOTE | 2018-12-17 07:58 | NUR ---
Family member at bedside.
[2018-12-17] MEDS: SODIUM CHLORIDE 0.9% 1,000 ML IV SCH (08:27)
--- NOTE | 2018-12-17 08:33 | NUR ---
Breakfast tray provided, RN fed the patient. Patient ate 50% of her meal. No s/s of aspiration noted.
[2018-12-17] MEDS: Pro-Stat SF 30ml Vanilla PO SCH ×2 (09:06→18:00)
--- NOTE | 2018-12-17 09:07 | NUR ---
Levophed gtt stopped, BP 112/56.
--- NOTE | 2018-12-17 09:17 | NUR ---
Patient c/o generalized pain, Guy 1 tab given. Patient turned and repositioned. No s/s of distress noted.
[2018-12-17] MEDS: HYDROcodone-ACET 5/325MG TAB PO PRN ×3 (09:18→23:01)
[2018-12-17] MEDS: SODIUM BICARBONATE 650 MG TAB PO SCH ×2 (09:18→23:02)
[2018-12-17] MEDS: PIPERACILLIN-TAZOB 2.25GM 50 ML IV SCH ×2 (09:18→23:02)
[2018-12-17] MEDS: PANTOPRAZOLE 40 MG TAB PO SCH (09:18)
[2018-12-17] MEDS: CLOPIDOGREL BISULFATE 75 MG TAB PO SCH (09:18)
[2018-12-17] MEDS ORDERED: MORPHINE SULF INJ 2 MG/ML SYRINGE 1ML IV PRN (09:30)
--- NOTE | 2018-12-17 12:45 | NUR ---
Lunch provided, Patient is being fed by the RN.
[2018-12-17] MEDS: ONDANSETRON HCL 4 MG/2 ML VIAL IV PRN ×2 (13:05→18:19)
--- NOTE | 2018-12-17 13:05 | NUR ---
Patient c/o nausea, while eating lunch. Zofran 4mg IVP given.
--- NOTE | 2018-12-17 13:38 | NUR ---
Patient incontinent of liquid brown stool. Partial bath provided. Patient turned and repositioned.
--- NOTE | 2018-12-17 14:50 | NUR ---
Dr. Pascual at bedside.
--- NOTE | 2018-12-17 15:27 | NUR ---
SBAR report given to LUIGI Bonilla.
--- NOTE | 2018-12-17 16:00 | NUR ---
Received patient from ICU after SBAR given by Pamela MEYERS. Patient complains of pain 10/10. [place] given. Will continue to monitor.
--- NOTE | 2018-12-17 16:08 | NUR ---
[facility] No distress noted at time of departure.
--- NOTE | 2018-12-17 16:31 | NUR ---
Low BP Patient's systolic BP is 68. Dr. Pascual made aware and new orders for dopamine drip at 5mcg/kg/hr. Head Esthetician made aware of possible bed change to [place]. Head Esthetician stated she will leave a bed open in [place] for possible transfer. Will continue to monitor the patient.
[2018-12-17] MEDS: DOPamine 1600MCG/ML D5W 250 ML IV SCH (17:30)
--- NOTE | 2018-12-17 19:30 | NUR ---
report received from day rn poc reviewed
--- NOTE | 2018-12-17 19:45 | NUR ---
pt turned and repositioned with hob up peritoneal dialysis going, pt angry and upset as to not being given morphine, discusssed with pt poc and purpose of dobutamine gtt, b/p at this time 91/60 hr 110
[2018-12-17] MEDS: INSULIN LANTUS (GLARGINE) 1 /0.01ml (100units/ml) SC SCH (22:00)
--- NOTE | 2018-12-18 02:38 | NUR ---
b/p 112/78 hr 100, will continue to monitor
--- NOTE | 2018-12-18 03:20 | NUR ---
PTS PERITONEAL DIALYSIS COMPLETED, PT STATED THAT WILL DISCONNECT UNIT IN THE MORNING
[2018-12-18 05:44] VITALS: BP 95/46
[2018-12-18] MEDS: ALBUTEROL SULF 2.5 MG/0.5ML(0.5%) NEB SOLN NEB SCH ×5 (06:39→20:32)
[2018-12-18] MEDS: IPRATROPIUM BROM 0.5 MG/2.5ML INH SOL NEB SCH ×5 (06:39→20:32)
[2018-12-18] MEDS: DOPamine 1600MCG/ML D5W 250 ML IV SCH ×3 (06:49→23:03)
[2018-12-18] MEDS: metroNIDAZOLE 500 MG TAB PO SCH ×3 (06:49→21:09)
[2018-12-18] MEDS: ACCU-CHEK COMFORT CURVE STRIP VI SCH ×4 (06:50→21:23)
[2018-12-18] MEDS: InsuLIN REG 1unit/0.01ml Soln (100units/ml) SC SCH ×4 (06:51→21:22)
[2018-12-18 07:28] LABS: Hematocrit 29.5 % (36.0-46.0); Hemoglobin 10.1 g/dL (12.2-16.2); Mean Corpuscular Hemoglobin 31.1 pg (28.0-32.0); Mean Corpuscular Hgb Conc. 34.3 g/dL (32.0-36.0); Mean Corpuscular Volume 90.6 fL (80.0-100.0); Platelet Count (auto) 276 10^3/uL (140-450); Red Blood Cells 3.26 10^6/uL (4.0-5.20); Red Cell Distribution Width 16.1 % (11.8-14.3); White Blood Cell 9.5 10^3/uL (4.4-10.8)
[2018-12-18 07:32] LABS: Basophils % (manual) 0 (0.0-2.0); Blast Cells 0; Metamyelocytes % 0; Myelocytes % 0; Promyelocytes % 0; Reactive Lymphocytes 0
[2018-12-18 07:46] LABS: Prothrombin Time 61.1 sec (9.27-12.13)
[2018-12-18 07:50] LABS: INR 6.34 (0.9-1.15)
[2018-12-18 07:51] LABS: Partial Thromboplastin Time 72.5 sec (23.78-33.04)
[2018-12-18] MEDS: Pro-Stat SF 30ml Vanilla PO SCH ×2 (08:00→18:00)
--- NOTE | 2018-12-18 08:03 | NUR ---
Paged on-call hospitalist Dr. Salcido regarding critical labs. Awaiting call back.
[2018-12-18 08:08] LABS: Band Neutrophils % (manual) 1; Eosinophils % (manual) 1 (0-7); Lymphocytes % (manual) 6 (10.0-50.0); Monocytes % (manual) 3 (0-12)
--- NOTE | 2018-12-18 08:39 | NUR ---
Paged on-call hospitalist Dr. Salcido regarding critical labs. Awaiting call back.
[2018-12-18 09:00] VITALS: BP 105/74
--- NOTE | 2018-12-18 09:09 | NUR ---
Paged on-call hospitalist Dr. Salcido regarding critical labs. Awaiting call back.
[2018-12-18] MEDS: ONDANSETRON HCL 4 MG/2 ML VIAL IV PRN (09:30)
[2018-12-18] MEDS: PANTOPRAZOLE 40 MG TAB PO SCH (09:30)
--- NOTE | 2018-12-18 09:42 | NUR ---
Paged on-call hospitalist Dr. Salcido regarding critical labs. Awaiting call back.
[2018-12-18] MEDS: SODIUM BICARBONATE 650 MG TAB PO SCH ×2 (10:00→21:08)
--- NOTE | 2018-12-18 10:35 | NUR ---
Paged on-call hospitalist Dr. Salcido regarding critical labs. Awaiting call back.
--- NOTE | 2018-12-18 10:45 | NUR ---
Spoke with Dr. Salcido. MD aware of critical lab results. No new orders. Patient is refusing a second IV. Patient educated on the importance of receiving antibiotics. Patient still refuses second IV placement. Patient is alert and oriented to self and time. MD aware. Called pharmacy and antibiotics/dopamine are not compatible. Explained situation to MD. Dr. Salcido ordered to leave dopamine running and wait until further orders. Will continue care.
[2018-12-18] MEDS: SODIUM CHLORIDE 0.9% 1,000 ML IV SCH (11:40)
[2018-12-18 13:00] VITALS: BP 90/46
[2018-12-18 13:20] VITALS: BP 95/56
--- NOTE | 2018-12-18 13:30 | NUR ---
MD aware unable to administer IV antibiotics due to dopamine running. Patient refuses another IV site. stated she will switch IV antibiotics to PO.
[2018-12-18] MEDS ORDERED: ONDANSETRON HCL 4 MG/2 ML VIAL IV PRN (14:00)
[2018-12-18] MEDS: CLOPIDOGREL BISULFATE 75 MG TAB PO SCH (14:31)
--- NOTE | 2018-12-18 14:33 | NUR ---
Clarified Plavix administration with Dr. Salcido. Robb NAPIER, continue with administration.
[2018-12-18] MEDS ORDERED: POTASSIUM CHL 10 Meq TABLET PO ONE (14:45)
--- NOTE | 2018-12-18 16:44 | NUR ---
Dr. Salcido paged regarding IV antibiotics.
[2018-12-18 17:00] VITALS: BP 90/52
--- NOTE | 2018-12-18 17:11 | NUR ---
On-call hospitalist Jorge CRUZ paged.
--- NOTE | 2018-12-18 17:40 | NUR ---
Jorge CURZ aware of low BP. No new orders received. Will continue to monitor.
--- NOTE | 2018-12-18 17:40 | NUR ---
Spoke with Jorge CRUZ and Pharmacist [place]. Zosyn can be given with patient's drip. Give 1000 dose now and have shift engineer RN give dose after noc PD.
[2018-12-18] MEDS: PIPERACILLIN-TAZOB 2.25GM 50 ML IV SCH ×2 (17:49→23:03)
--- NOTE | 2018-12-18 19:35 | NUR ---
Change of shift given to caustic cresylate shift superintendent RN. No distress noted.
--- NOTE | 2018-12-18 20:00 | NUR ---
Opening Shift Note Assumed care of patient, awake and alert, oriented x 4. On room air with even and unlabored respirations, no S/S of distress or SOB. Pedal pulses even and regular using Doppler, noted +2 pitting edema to bilateral feet. Patient turned with moderate assistance, sacrum intact no redness noted. Reposition patient. Midline to right upper arm intact infusing dopamine at 17.8 ml/hr. Bed low locked position with side rails up x 2 and call light within reach, bed alarm on. Instructed on POC and to call for assist PRN, will continue to monitor for changes Q1hr and PRN. Addendum: 12/22/18 at 0213 by Samantha Cee RN dobutamine drip at 17.8, not Dopamine.
--- NOTE | 2018-12-18 21:00 | NUR ---
Peritoneal Dialysis Started at bedside. Per , patient receives PD every night for 9 hours. Will continue to monitor.
[2018-12-18] MEDS: HYDROcodone-ACET 5/325MG TAB PO PRN (21:08)
[2018-12-18] MEDS: INSULIN LANTUS (GLARGINE) 1 /0.01ml (100units/ml) SC SCH (21:23)
[2018-12-18 22:07] VITALS: BP 89/61
[2018-12-19] VITALS (8 sets, daily range): BP systolic 78–112; BP diastolic 42–77
[2018-12-19] MEDS: SODIUM CHLORIDE 0.9% 1,000 ML IV SCH ×2 (05:08→22:33)
[2018-12-19] MEDS: ACCU-CHEK COMFORT CURVE STRIP VI SCH ×4 (05:56→22:36)
[2018-12-19] MEDS: metroNIDAZOLE 500 MG TAB PO SCH (05:56)
[2018-12-19] MEDS: InsuLIN REG 1unit/0.01ml Soln (100units/ml) SC SCH ×4 (06:07→22:53)
[2018-12-19] MEDS: HYDROcodone-ACET 5/325MG TAB PO PRN (06:19)
[2018-12-19 06:28] LABS: Hematocrit 28.7 % (36.0-46.0); Hemoglobin 9.8 g/dL (12.2-16.2); Mean Corpuscular Hemoglobin 31.1 pg (28.0-32.0); Mean Corpuscular Hgb Conc. 34.1 g/dL (32.0-36.0); Mean Corpuscular Volume 91.2 fL (80.0-100.0); Platelet Count (auto) 265 10^3/uL (140-450); Red Blood Cells 3.15 10^6/uL (4.0-5.20); Red Cell Distribution Width 16.1 % (11.8-14.3); White Blood Cell 8.1 10^3/uL (4.4-10.8)
[2018-12-19 06:42] LABS: Potassium 3.1 mmol/L (3.5-5.1)
[2018-12-19 06:46] LABS: BUN/Creatinine Ratio 4.2; Calcium 7.2 mg/dL (8.5-10.1)
[2018-12-19 06:49] LABS: Albumin 1.3 g/dL (3.4-5.0); Bilirubin, Total 0.4 mg/dL (0.2-1.0); Magnesium 1.5 mg/dL (1.6-2.6); Total Protein 5.6 g/dL (6.4-8.2)
--- NOTE | 2018-12-19 07:00 | NUR ---
Closing Note patient resting in bed with even and unlabored respirations. PD finished. IV intact and patent infusing Dopamine at 17.8 mL/hr. No s/s of distress. Endorsed care to day shift RN. Addendum: 12/22/18 at 0213 by Samantha Cee RN dobutamine drip at 17.8, not Dopamine.
[2018-12-19 07:02] LABS: Basophils % (manual) 0 (0.0-2.0); Blast Cells 0; Metamyelocytes % 0; Myelocytes % 0; Promyelocytes % 0; Reactive Lymphocytes 0
[2018-12-19 07:08] LABS: Prothrombin Time 60.2 sec (9.27-12.13)
[2018-12-19] MEDS: IPRATROPIUM BROM 0.5 MG/2.5ML INH SOL NEB SCH ×3 (07:11→19:47)
[2018-12-19] MEDS: ALBUTEROL SULF 2.5 MG/0.5ML(0.5%) NEB SOLN NEB SCH ×3 (07:11→19:47)
--- NOTE | 2018-12-19 07:11 | NUR ---
RT NOTE: PT REFUSED TX AT THIS TIME. NO SIGNS OF RESPIRATORY DISTRESS NOTED. LUNG SOUNDS CLEAR DIMINISHED T/O. ON RA SPO2 97 HR 68 RR 18. PT AWARE THAT I WILL RETURN FOR NEXT SCHEDULED TX. WILL CONTINUE TO MONITOR.
[2018-12-19 07:41] LABS: INR 6.24 (0.9-1.15); Partial Thromboplastin Time 74.1 sec (23.78-33.04)
[2018-12-19] MEDS: Pro-Stat SF 30ml Vanilla PO SCH ×2 (08:00→18:00)
[2018-12-19 08:49] LABS: Band Neutrophils % (manual) 2; Eosinophils % (manual) 3 (0-7); Lymphocytes % (manual) 12 (10.0-50.0); Monocytes % (manual) 5 (0-12)
--- NOTE | 2018-12-19 09:00 | NUR ---
Opening Shift Note Assumed care of patient, awake and lethargic. No S/S of distress/SOB or pain. Skin is warm and dry to touch, no s/s of hyperglycemia or hypoglycemia noted. Instructed on POC and to call for assist PRN, will continue to monitor for changes Q1hr and PRN.
[2018-12-19] MEDS: SODIUM BICARBONATE 650 MG TAB PO SCH ×2 (09:50→22:36)
[2018-12-19] MEDS: PIPERACILLIN-TAZOB 2.25GM 50 ML IV SCH ×2 (09:50→22:35)
[2018-12-19] MEDS: CLOPIDOGREL BISULFATE 75 MG TAB PO SCH (09:50)
[2018-12-19] MEDS: PANTOPRAZOLE 40 MG TAB PO SCH (09:50)
--- NOTE | 2018-12-19 11:30 | NUR ---
IV insertion IV access obtained, via clean sterile technique by inserting 22 gauge catheter at after attempt(s). IV secured properly. No trauma to site. Patient tolerated well. NOTE: Addendum: 12/19/18 at 1834 by JOSE CARLOS WILSON RN Inserted to left hand after 1 attempt.
--- NOTE | 2018-12-19 11:45 | NUR ---
Dr. Salcido at bedside discussed with patient's and made aware critical INR and PTT and patient has a very weak pulse and unable to obtain BP.
--- NOTE | 2018-12-19 12:43 | NUR ---
Nutrition Consult/Follow-up Notes Wt.: 99.4 kg Pt was awake but seemed groggy, not talking but responding to name with no family by beside when rounded this am. per records pt had PD today morning. per records pt with severe PVD and s/p angioplasty. pt is currently on CCHO 60 gm cardiac renal std diet with prostat 1 packet bid with inadequate PO of < 50% x 4 per RN doc. noted pt on warfarin, dietary updated Est. Needs: 1800 kcal to 2300 kcal (20-25 kcal/kgBW), 92 gms to 138 gms pro (1.0-1.5 gms/kgBW d/t ESRD on PD, severe hypoalbuminemia). Will continue to monitor pertinent labs and reassess nutrient needs prn Labs: BUN 29 H, CREAT 6.96 H, GLU 239 H, ALB 1.3 L. Skin: Dung scale 17, mod risk, skin intact per per mobile mechanic. GI: Pt had 1 BM yesterday per mobile mechanic. PES: Altered nutrition related lab values r/t current/chronic medical condition aeb hyperglycemia, hyponatremia, hypokalemia, hypocapnia, elev. renal labs, lactic acid, AST,hypocalcemia and severe hypoalbuminemia Increased nutrient needs r/t current medical condition aeb ESRD on PD, severe hypoalbuminemia, wound healing Obesity r/t excessive PO intake aeb 155% IBW, BMI 32.6 kg/m2 and increased body adiposity Will continue to monitor PO intake, skin status, pertinent labs and weight trend. F/u in 3-5 days Rec.: 1.) Consider daily Nephrovite and Asc acid 500 mgs BID prn. 2.) Consider nephro carb steady 1 carton bid if Po continues to be low. 3) Continue close supervision and feeding assistance prn during meals. 3.) Refer to CDE/RD for further nutrition educ. and weight monitoring upon discharge. 4.) Continue current plan of care.
--- NOTE | 2018-12-19 13:15 | NUR ---
Respiratory note: SCHEDULE TX NOT GIVEN.
[2018-12-19] MEDS ORDERED: POTASSIUM CHL 10 Meq TABLET PO ONE (14:30)
[2018-12-19] MEDS ORDERED: MAGNESIUM SULFATE 1GM/100ML 100 ML IV ONE (14:30)
[2018-12-19] MEDS ORDERED: MIDODRINE HCL 10 MG TAB PO ONE (14:34)
[2018-12-19] MEDS: DOPamine 1600MCG/ML D5W 250 ML IV SCH (17:33)
[2018-12-19] MEDS: MIDODRINE HCL 10 MG TAB PO SCH (17:42)
--- NOTE | 2018-12-19 18:49 | NUR ---
Received a Tele Psy order, called [phone] spoke to Lorrie, awaiting physician to call back.
--- NOTE | 2018-12-19 19:45 | NUR ---
Opening Shift Note Assumed care of patient, awake and alert, oriented x 3, reoriented to situation. On room air with even and unlabored respirations, no S/S of distress or SOB. Bilateral pedal and radial pulses normal, even and regular using Doppler, noted +2 pitting edema to bilateral feet, skin cool to touch, brisk capillary refill. Patient turned with moderate assistance, sacrum intact no redness noted. Reposition patient for comfort. Midline to right upper arm intact infusing dopamine at 17.8 ml/hr. Bed low locked position with side rails up x 2 and call light within reach, bed alarm on. Instructed on POC and to call for assist PRN, will continue to monitor for changes Q1hr and PRN. Addendum: 12/20/18 at 0432 by Samantha Cee RN PD connect to patient and in progress Addendum: 12/22/18 at 0212 by Samantha Cee RN dobutamine drip at 17.8, not Dopamine.
--- NOTE | 2018-12-19 19:48 | NUR ---
Respiratory note: AT BEDSIDE FOR MED NEB TX. PT CURRENTLY DOING A PSYCH CONSULT. RN EKATERINA AT BEDSIDE.
--- NOTE | 2018-12-19 20:00 | NUR ---
Tele Abelardosch In Progress
[2018-12-19] MEDS: INSULIN LANTUS (GLARGINE) 1 /0.01ml (100units/ml) SC SCH (22:56)
[2018-12-20] VITALS (7 sets, daily range): BP systolic 83–119; BP diastolic 49–74
[2018-12-20] MEDS: ACCU-CHEK COMFORT CURVE STRIP VI SCH ×4 (06:37→21:32)
[2018-12-20] MEDS: InsuLIN REG 1unit/0.01ml Soln (100units/ml) SC SCH ×4 (06:37→23:03)
[2018-12-20] MEDS: MIDODRINE HCL 10 MG TAB PO SCH ×3 (06:37→18:15)
[2018-12-20] MEDS: ALBUTEROL SULF 2.5 MG/0.5ML(0.5%) NEB SOLN NEB SCH ×5 (06:41→21:53)
[2018-12-20] MEDS: IPRATROPIUM BROM 0.5 MG/2.5ML INH SOL NEB SCH ×5 (06:41→21:53)
--- NOTE | 2018-12-20 07:00 | NUR ---
Closing Note patient resting in bed with even and unlabored respirations. PD finished. IV intact and patent infusing Dopamine at 17.8 mL/hr. No s/s of distress. Endorsed care to day shift RN. Addendum: 12/22/18 at 0212 by Samantha Cee RN dobutamine drip at 17.8, not Dopamine.
--- NOTE | 2018-12-20 09:10 | NUR ---
B/P PER COIL CONNECTOR CHANDRA 83/49 RT 85.
--- NOTE | 2018-12-20 09:48 | NUR ---
RECHECK B/P 110/69 HR 89.
[2018-12-20] MEDS: PIPERACILLIN-TAZOB 2.25GM 50 ML IV SCH (10:56)
[2018-12-20] MEDS: CLOPIDOGREL BISULFATE 75 MG TAB PO SCH (10:56)
[2018-12-20] MEDS: SODIUM BICARBONATE 650 MG TAB PO SCH ×2 (10:57→21:31)
[2018-12-20] MEDS: PANTOPRAZOLE 40 MG TAB PO SCH (10:57)
[2018-12-20] MEDS: Pro-Stat SF 30ml Vanilla PO SCH ×2 (10:57→18:14)
--- NOTE | 2018-12-20 11:10 | NUR ---
[email or web address] [email or web address]&language=en&mainSearchCriteria.v.dn=[email or web address]&age.v.u=a&age.v.v=53&ageGroup.v.c=D [id number]&ageGroup.v.dn=[email or web address]&patientPerson.administrativeGenderCode.c=F&patien tPerson.administrativeGenderCode.dn=Female&performer=PROV&informationRecipient=PAT&i=[id number] Addendum: 12/20/18 at 1940 by Pola Ramirez RN RN PLEASE DISREGARD THIS NOTE.
--- NOTE | 2018-12-20 11:20 | NUR ---
DR. ARECHIGA AT BEDSIDE.
[2018-12-20] MEDS: HYDROcodone-ACET 5/325MG TAB PO PRN (12:46)
--- NOTE | 2018-12-20 12:50 | NUR ---
DR. BEARD AT BEDSIDE.
[2018-12-20 13:35] LABS: Partial Thromboplastin Time 52.3 sec (23.78-33.04); Prothrombin Time 70.7 sec (9.27-12.13)
[2018-12-20 13:40] LABS: INR 7.4 (0.9-1.15)
[2018-12-20 13:42] LABS: Albumin 1.4 g/dL (3.4-5.0); Anion Gap 15 (5-15); BUN/Creatinine Ratio 4.4; Blood Urea Nitrogen 29 mg/dL (7-18); Calcium 7.2 mg/dL (8.5-10.1); Carbon Dioxide 23 mmol/L (21-32); Chloride 92 mmol/L (98-107); GFR African American 8 mL/min; GFR Non-African American 7 mL/min; Glucose 156 mg/dL (74-106); Magnesium 1.8 mg/dL (1.6-2.6); Sodium 130 mmol/L (136-145)
[2018-12-20 13:47] LABS: Alanine Aminotransferase 28 U/L (13-56); Alkaline Phosphatase 473 U/L (45-117); Aspartate Aminotransferase 22 U/L (15-37); Bilirubin, Total 0.3 mg/dL (0.2-1.0)
[2018-12-20 14:06] LABS: Potassium 2.9 mmol/L (3.5-5.1)
[2018-12-20] MEDS ORDERED: MORPHINE SULF INJ 2 MG/ML SYRINGE 1ML IV PRN (14:15)
[2018-12-20] MEDS ORDERED: MAGNESIUM SULFATE 1GM/100ML 100 ML IV ONE (14:15)
[2018-12-20] MEDS ORDERED: POTASSIUM CHL 20 Meq TABLET PO ONE ×2 (14:15→21:00)
[2018-12-20] MEDS ORDERED: ALBUMIN 25% 100 ML IV ONE (14:15)
[2018-12-20] MEDS: DOPamine 1600MCG/ML D5W 250 ML IV SCH (15:35)
[2018-12-20] MEDS: SODIUM CHLORIDE 0.9% 1,000 ML IV SCH (15:35)
--- NOTE | 2018-12-20 19:41 | NUR ---
CARE ENDORSED TO EKATERINA MEYERS.
--- NOTE | 2018-12-20 20:15 | NUR ---
ANTHONY Marcial paged regarding critical K 2.8 awaiting call back. will continue care.
--- NOTE | 2018-12-20 20:30 | NUR ---
ANTHONY Marcial called back updated on patient status. new order received for Potassium 40meq PO x1. Read back and verified. Will continue care.
[2018-12-20 21:05] LABS: White Blood Cell 10.1 10^3/uL (4.4-10.8)
[2018-12-20 21:06] LABS: Hematocrit 29.3 % (36.0-46.0); Hemoglobin 9.6 g/dL (12.2-16.2); Mean Corpuscular Hemoglobin 29.8 pg (28.0-32.0); Mean Corpuscular Volume 90.5 fL (80.0-100.0); Red Blood Cells 3.23 10^6/uL (4.0-5.20)
[2018-12-20 21:07] LABS: Mean Corpuscular Hgb Conc. 32.9 g/dL (32.0-36.0); Platelet Count (auto) 220 10^3/uL (140-450); Red Cell Distribution Width 15.7 % (11.8-14.3)
[2018-12-20 21:08] LABS: Band Neutrophils % (manual) 7; Basophils % (manual) 0 (0.0-2.0); Blast Cells 0; Eosinophils % (manual) 3 (0-7); Lymphocytes % (manual) 10 (10.0-50.0); Monocytes % (manual) 3 (0-12); Myelocytes % 0; Promyelocytes % 0; Reactive Lymphocytes 0
[2018-12-20 21:09] LABS: Metamyelocytes % 1
[2018-12-20] MEDS: INSULIN LANTUS (GLARGINE) 1 /0.01ml (100units/ml) SC SCH (23:03)
[2018-12-21] VITALS (8 sets, daily range): BP systolic 60–127; BP diastolic 35–73
[2018-12-21] MEDS: DOPamine 1600MCG/ML D5W 250 ML IV SCH (00:39)
[2018-12-21] MEDS: MIDODRINE HCL 10 MG TAB PO SCH ×2 (05:22→18:12)
[2018-12-21] MEDS: InsuLIN REG 1unit/0.01ml Soln (100units/ml) SC SCH ×4 (06:51→22:00)
[2018-12-21] MEDS: ACCU-CHEK COMFORT CURVE STRIP VI SCH ×4 (06:51→22:07)
--- NOTE | 2018-12-21 07:01 | NUR ---
Closing Note patient resting in bed with even and unlabored respirations. IV intact and patent infusing Dopamine at 17.8 mL/hr. No s/s of distress. Endorsed care to day shift RN. Addendum: 12/22/18 at 0212 by Samantha Cee RN dobutamine drip at 17.8, not Dopamine.
--- NOTE | 2018-12-21 07:02 | NUR ---
Opening Shift Note Assumed care of patient, awake and alert, oriented x 3, reoriented to situation. On room air with even and unlabored respirations, no S/S of distress or SOB. Bilateral pedal and radial pulses normal, even and regular using Doppler, noted +2 pitting edema to bilateral feet, skin cool to touch, brisk capillary refill. Patient turned with moderate assistance, sacrum intact no redness noted. Reposition patient for comfort. Midline to right upper arm intact infusing dopamine at 17.8 ml/hr. Bed low locked position with side rails up x 2 and call light within reach, bed alarm on. Instructed on POC and to call for assist PRN, will continue to monitor for changes Q1hr and PRN. Addendum: 12/22/18 at 0211 by Samantha Cee RN dobutamine drip at 17.8, not dopamine.
[2018-12-21] MEDS: ALBUTEROL SULF 2.5 MG/0.5ML(0.5%) NEB SOLN NEB SCH ×3 (07:54→19:50)
[2018-12-21] MEDS: IPRATROPIUM BROM 0.5 MG/2.5ML INH SOL NEB SCH ×3 (07:54→19:50)
--- NOTE | 2018-12-21 08:37 | NUR ---
I faxed home health/shower chair order to [facility].
--- NOTE | 2018-12-21 08:50 | NUR ---
DR. NINO AT BEDSIDE.
[2018-12-21] MEDS ORDERED: FOLI1TAB6 PO (09:16)
[2018-12-21] MEDS ORDERED: POTA20TA53 PO (09:16)
[2018-12-21] MEDS ORDERED: PRAV20TA3 PO (09:16)
[2018-12-21] MEDS ORDERED: METO25TA4 PO (09:16)
[2018-12-21] MEDS ORDERED: ASPI81TA27 PO (09:16)
[2018-12-21] MEDS ORDERED: OME20GT GT (09:16)
[2018-12-21] MEDS ORDERED: FURO40TA4 PO (09:16)
[2018-12-21] MEDS: CLOPIDOGREL BISULFATE 75 MG TAB PO SCH (10:09)
[2018-12-21] MEDS: Pro-Stat SF 30ml Vanilla PO SCH ×2 (10:09→18:00)
[2018-12-21] MEDS: SODIUM BICARBONATE 650 MG TAB PO SCH ×3 (10:09→22:00)
[2018-12-21] MEDS: PANTOPRAZOLE 40 MG TAB PO SCH (10:09)
[2018-12-21] MEDS: HYDROcodone-ACET 5/325MG TAB PO PRN (10:46)
[2018-12-21] MEDS: SODIUM CHLORIDE 0.9% 1,000 ML IV SCH (10:48)
--- NOTE | 2018-12-21 11:31 | NUR ---
PT'S BP 60/40. DR. BEARD NOTIFIED. NEW ORDER RESUME DOBUTAMINE DRIP FLOOR USE NO TITRATE 5MCG/KG/MIN PAO. ORDER READ BACK AND VERIFIED WILL CARRY OUT ORDER.
--- NOTE | 2018-12-21 12:00 | NUR ---
DR. BEARD AT BEDSIDE.
[2018-12-21 12:03] LABS: Hemoglobin 9.1 g/dL (12.2-16.2); Mean Corpuscular Hemoglobin 30.6 pg (28.0-32.0); Mean Corpuscular Hgb Conc. 33.9 g/dL (32.0-36.0); Mean Corpuscular Volume 90.3 fL (80.0-100.0); Platelet Count (auto) 229 10^3/uL (140-450); Red Blood Cells 2.99 10^6/uL (4.0-5.20); Red Cell Distribution Width 16.6 % (11.8-14.3); White Blood Cell 11.7 10^3/uL (4.4-10.8)
[2018-12-21 12:18] LABS: Band Neutrophils % (manual) 0; Basophils % (manual) 0 (0.0-2.0); Blast Cells 0; Metamyelocytes % 0; Myelocytes % 0; Promyelocytes % 0; Reactive Lymphocytes 0
[2018-12-21 12:27] LABS: Prothrombin Time 73.5 sec (9.27-12.13)
--- NOTE | 2018-12-21 12:40 | NUR ---
Notified RN of critical value Verbally notified Pola, primary RN, of the patient's critical PT, INR, PTT lab values. Pola verbalized understanding.
[2018-12-21 12:54] LABS: INR 7.71 (0.9-1.15); Partial Thromboplastin Time 78.7 sec (23.78-33.04)
[2018-12-21 12:56] LABS: BUN/Creatinine Ratio 4.4; Calcium 7.5 mg/dL (8.5-10.1); Potassium 3.2 mmol/L (3.5-5.1)
[2018-12-21] MEDS ORDERED: POTASSIUM CHL 20 Meq TABLET PO ONE (13:15)
[2018-12-21] MEDS ORDERED: SODIUM POLYSTYRENE SULF 15 GM POWDER PO ONE (13:15)
[2018-12-21] MEDS ORDERED: SODIUM POLYSTYRENE SULF 15GM/60ml SUSP or POWDER PO ONE (13:15)
[2018-12-21 13:16] LABS: Eosinophils % (manual) 5 (0-7); Lymphocytes % (manual) 8 (10.0-50.0); Monocytes % (manual) 6 (0-12)
[2018-12-21] MEDS: DOBUTamine 1000MCG/ML 250 ML IV SCH (13:41)
--- NOTE | 2018-12-21 13:48 | NUR ---
I called [facility] and left message for Erin [phone] asking for participating vendors for home health and DME as well as authorization for patient's stay-awaiting return call.
[2018-12-21] MEDS: PREGABALIN 25 MG CAP PO SCH ×3 (14:00→22:00)
--- NOTE | 2018-12-21 18:20 | NUR ---
WOUND CARE NOTE: Weekly reevaluation by wound care team. Wound care team has been following due to low Dung score. Last Dung score is 17. Patient is resting, no signs/symptoms of pain. Patient remains to have several scabs to right foot toes. No open draining wounds noted. No other open wounds. RECOMMENDATIONS: Nursing to continue with previous wound/skin care; wound care team to follow while Dung is <18.
--- NOTE | 2018-12-21 19:20 | NUR ---
MD Limon RE: BP 66/35 HR 82 awaiting call back. will continue care. Addendum: 12/22/18 at 0215 by Samantha Cee RN dobutamine drip currently infusing at 30mL/hr.
--- NOTE | 2018-12-21 19:28 | NUR ---
MD Layton called back updated on patient status and condition. Order received for Midodrine 10mg PO x1 now and "change dobutamine drip rate to 17.8mL/hr, if BP does not improve call back." Read back and verified. Will carry out orders and continue care.
--- NOTE | 2018-12-21 19:30 | NUR ---
Opening Shift Note Assumed care of patient, sleeping with eyes closed, patient arosuable to name but does not answer any other questions. On room air with even and unlabored respirations, no S/S of distress or SOB. Bilateral pedal and radial pulses normal, even and regular using Doppler, noted +2 pitting edema to bilateral feet, skin cool to touch, brisk capillary refill. Midline to right upper arm intact infusing dobutamine at 17.8 ml/hr. IV to right hand intact and patent infusing NS at 50mL/hr. Bed low locked position with side rails up x 2 and call light within reach, bed alarm on. Instructed on POC and to call for assist PRN, will continue to monitor for changes Q1hr and PRN. Addendum: 12/22/18 at 0216 by Samantha Cee RN ordered carried to change rate from 30mL/hr to 17.8mL/hr.
--- NOTE | 2018-12-21 19:53 | NUR ---
CARE ENDORSED TO EKATERINA MEYERS.
[2018-12-21] MEDS ORDERED: MIDODRINE HCL 10 MG TAB PO ONE (20:00)
[2018-12-21] MEDS: INSULIN LANTUS (GLARGINE) 1 /0.01ml (100units/ml) SC SCH (22:00)
--- NOTE | 2018-12-21 22:00 | NUR ---
ANTHONY Marcial called RE: BP 72/46 dobutamine drip infusing at 17.8mL/hr. NS infusing at 50mL/hr. awaiting call back. will continue care.
--- NOTE | 2018-12-21 22:45 | NUR ---
ANTHONY Marcial called back updated on patient status and condition. new order received for Albumin 5% 250mL IV x1 now and keep dobutamine drip rate at 17mL/hr. Read back and verified. Will carry out orders and continue care.
[2018-12-21] MEDS ORDERED: ALBUMIN 5% 250 ML IV ONE (23:00)
[2018-12-22] VITALS (8 sets, daily range): BP systolic 65–97; BP diastolic 32–73
[2018-12-22] MEDS: DOBUTamine 1000MCG/ML 250 ML IV SCH ×4 (00:49→22:29)
--- NOTE | 2018-12-22 01:45 | NUR ---
Rounds BP 97/73 patient resting in bed with even and unlabored respirations, arousable to name. no s/s of distress. dobutamine infusing at 17.8mL/hr and NS at 50mL/hr. Will continue to monitor.
[2018-12-22] MEDS: MIDODRINE HCL 10 MG TAB PO SCH ×3 (06:09→18:05)
[2018-12-22] MEDS: PREGABALIN 25 MG CAP PO SCH ×3 (06:09→22:29)
[2018-12-22] MEDS: InsuLIN REG 1unit/0.01ml Soln (100units/ml) SC SCH ×4 (06:10→22:00)
[2018-12-22] MEDS: ACCU-CHEK COMFORT CURVE STRIP VI SCH ×4 (06:10→22:25)
[2018-12-22] MEDS: SODIUM CHLORIDE 0.9% 1,000 ML IV SCH (06:10)
[2018-12-22 06:29] LABS: BUN/Creatinine Ratio 4.3; Calcium 7.2 mg/dL (8.5-10.1); Potassium 3.2 mmol/L (3.5-5.1)
[2018-12-22 06:34] LABS: Basophils # (auto) 0 uL; Basophils % (auto) 0.3 % (0.0-2.0); Eosinophils # (auto) 0.1 uL; Eosinophils % (auto) 0.5 % (0.0-7.0); Hemoglobin 8.8 g/dL (12.2-16.2); Lymphocytes # (auto) 0.7 uL; Lymphocytes % (auto) 6.6 % (10.0-50.0); Mean Corpuscular Hemoglobin 30.4 pg (28.0-32.0); Mean Corpuscular Hgb Conc. 31.5 g/dL (32.0-36.0); Mean Corpuscular Volume 96.4 fL (80.0-100.0); Monocytes # (auto) 0.5 uL; Neutrophils # (auto) 9.4 uL; Neutrophils % (auto) 87.6 % (37.0-80.0); Nucleated Red Blood Cells % 0.2 %; Platelet Count (auto) 158 10^3/uL (140-450); Red Blood Cells 2.91 10^6/uL (4.0-5.20); Red Cell Distribution Width 17.6 % (11.8-14.3); White Blood Cell 10.7 10^3/uL (4.4-10.8)
--- NOTE | 2018-12-22 07:00 | NUR ---
Closing Note patient resting in bed with even and unlabored respirations. IV intact and patent infusing Dobutamine at 17.8 mL/hr. No s/s of distress. Endorsed care to day shift RN.
[2018-12-22] MEDS: IPRATROPIUM BROM 0.5 MG/2.5ML INH SOL NEB SCH ×5 (07:50→23:32)
[2018-12-22] MEDS: ALBUTEROL SULF 2.5 MG/0.5ML(0.5%) NEB SOLN NEB SCH ×5 (07:50→23:32)
[2018-12-22] MEDS: Pro-Stat SF 30ml Vanilla PO SCH ×2 (08:00→18:00)
[2018-12-22] MEDS: PANTOPRAZOLE 40 MG TAB PO SCH (09:24)
[2018-12-22] MEDS: SODIUM BICARBONATE 650 MG TAB PO SCH ×2 (09:24→22:29)
[2018-12-22] MEDS: CLOPIDOGREL BISULFATE 75 MG TAB PO SCH (09:24)
--- NOTE | 2018-12-22 11:58 | NUR ---
Nutrition Follow-up Notes Wt.: 101.6 kg Pt was sleeping with no family by beside when rounded this am. per records pt had PD every night. per records pt with severe PVD and s/p angioplasty. pt is currently on CCHO 60 gm cardiac renal std diet with prostat 1 packet bid with inadequate PO of < 50% x 6 per RN doc. Est. Needs: 1800 kcal to 2300 kcal (20-25 kcal/kgBW), 92 gms to 138 gms pro (1.0-1.5 gms/kgBW d/t ESRD on PD, severe hypoalbuminemia). Will continue to monitor pertinent labs and reassess nutrient needs prn Labs: BUN 26 H, CREAT 6.1 H, CA 7.2 L, ALB 1.4 L, GLU 154 H Skin: Dung scale 14, mod risk, skin intact per per hotel receptionist. GI: Pt had 1 BM on 12/22 per hotel receptionist. PES: Altered nutrition related lab values r/t current/chronic medical condition aeb hyperglycemia, hyponatremia, hypokalemia, hypocapnia, elev. renal labs, lactic acid, AST,hypocalcemia and severe hypoalbuminemia Increased nutrient needs r/t current medical condition aeb ESRD on PD, severe hypoalbuminemia, wound healing Obesity r/t excessive PO intake aeb 155% IBW, BMI 32.6 kg/m2 and increased body adiposity Will continue to monitor PO intake, skin status, pertinent labs and weight trend. F/u in 3-5 days Rec.: 1.) Consider daily Nephrovite and Asc acid 500 mgs BID prn. 2.) Consider nephro carb steady 1 carton bid if Po continues to be low. 3) Continue close supervision and feeding assistance prn during meals. 3.) Refer to CDE/RD for further nutrition educ. and weight monitoring upon discharge. 4.) Continue current plan of care.
--- NOTE | 2018-12-22 12:31 | NUR ---
I spoke with [facility], she said they contract with [facility]. Home Health/DME order faxed to [facility] [phone] as well as [facility].
[2018-12-22 13:23] LABS: Prothrombin Time 72.3 sec (9.27-12.13)
[2018-12-22 13:42] LABS: INR 7.58 (0.9-1.15)
--- NOTE | 2018-12-22 13:42 | NUR ---
Per [employer], the ordered shower chair is not a covered benefit under patient's insurance.
--- NOTE | 2018-12-22 14:00 | NUR ---
PT SEEN BY DR. BEARD MADE AWARE OF LOW BP 68/37MMHG, RE-CHECKED 92/36MMHG. AWARE OF ELEVATED PT AND INR , SHE ORDERED PHYSICAL THERAPY. WILL CONTINUE TO MONITOR.
[2018-12-22] MEDS ORDERED: POTASSIUM CHL 20 Meq TABLET PO ONE (15:00)
[2018-12-22] MEDS ORDERED: SODIUM POLYSTYRENE SULF 15GM/60ml SUSP or POWDER PO ONE (15:30)
[2018-12-22 16:12] LABS: Anion Gap 17 (5-15); BUN/Creatinine Ratio 4.3; Blood Urea Nitrogen 27 mg/dL (7-18); Calcium 7.3 mg/dL (8.5-10.1); Carbon Dioxide 21 mmol/L (21-32); Chloride 93 mmol/L (98-107); GFR African American 9 mL/min; GFR Non-African American 7 mL/min; Glucose 114 mg/dL (74-106); Potassium 3.3 mmol/L (3.5-5.1); Sodium 131 mmol/L (136-145)
--- NOTE | 2018-12-22 16:57 | NUR ---
assessment Patient is a 63 year old female who is answering appropriately. Per patient prior to admission patient lived home with her Kwame and functioned with his assistance. Patient has a rollator and wheelchair for home use. Patients PCP is Dr Glaser. Patient informed me she needs a shower chair on discharge. I informed Kwame that patients post discharge needs to be determined. I informed Kwame he has a right to speak to a renal social worker regarding all care. I informed Kwame and patient they have a right to participate in any and all discharge planning. Kwame is aware of visiting hours on the hospital floor. I informed patient she has a right to privacy. Patient has a POA and advanced directive. Patient verbalized understanding and agreed to discharge plan home. Addendum: 12/22/18 at 1700 by Angelika WHITING Amended: Links added.
[2018-12-22] MEDS: INSULIN LANTUS (GLARGINE) 1 /0.01ml (100units/ml) SC SCH (22:00)
[2018-12-22] MEDS ORDERED: ALBUMIN 25% 100 ML IV STA (22:19)
[2018-12-23] VITALS (11 sets, daily range): BP systolic 79–121; BP diastolic 36–60
[2018-12-23] MEDS: SODIUM CHLORIDE 0.9% 1,000 ML IV SCH ×2 (02:15→22:15)
[2018-12-23] MEDS: PREGABALIN 25 MG CAP PO SCH ×3 (04:22→22:02)
[2018-12-23] MEDS: ACCU-CHEK COMFORT CURVE STRIP VI SCH ×4 (05:17→22:02)
[2018-12-23] MEDS: MIDODRINE HCL 10 MG TAB PO SCH ×3 (05:17→17:15)
[2018-12-23] MEDS: DOBUTamine 1000MCG/ML 250 ML IV SCH ×3 (05:17→22:01)
[2018-12-23] MEDS: IPRATROPIUM BROM 0.5 MG/2.5ML INH SOL NEB SCH ×4 (06:01→20:02)
[2018-12-23] MEDS: ALBUTEROL SULF 2.5 MG/0.5ML(0.5%) NEB SOLN NEB SCH ×4 (06:01→20:02)
[2018-12-23 07:44] LABS: Basophils # (auto) 0 uL; Eosinophils # (auto) 0.2 uL; Eosinophils % (auto) 1.9 % (0.0-7.0); Mean Corpuscular Volume 91.6 fL (80.0-100.0); Monocytes # (auto) 0.5 uL; Platelet Count (auto) 153 10^3/uL (140-450)
[2018-12-23 07:46] LABS: Basophils % (auto) 0.4 % (0.0-2.0); Hematocrit 21.5 % (36.0-46.0); Hemoglobin 7.3 g/dL (12.2-16.2); Lymphocytes # (auto) 0.7 uL; Lymphocytes % (auto) 6.5 % (10.0-50.0); Mean Corpuscular Hemoglobin 30.9 pg (28.0-32.0); Mean Corpuscular Hgb Conc. 33.8 g/dL (32.0-36.0); Monocytes % (auto) 4.1 % (0.0-12.0); Neutrophils # (auto) 9.9 uL; Neutrophils % (auto) 87.1 % (37.0-80.0); Nucleated Red Blood Cells % 0.4 %; Red Blood Cells 2.34 10^6/uL (4.0-5.20); Red Cell Distribution Width 16.2 % (11.8-14.3); White Blood Cell 11.3 10^3/uL (4.4-10.8)
[2018-12-23 07:57] LABS: Calcium 7.4 mg/dL (8.5-10.1); INR 8.77 (0.9-1.15); Magnesium 1.9 mg/dL (1.6-2.6); Potassium 3.1 mmol/L (3.5-5.1)
--- NOTE | 2018-12-23 08:46 | NUR ---
paged hospitalist for INR 8.77, K 3.1. waiting for call back
[2018-12-23] MEDS: SODIUM BICARBONATE 650 MG TAB PO SCH ×2 (09:46→22:02)
[2018-12-23] MEDS: PANTOPRAZOLE 40 MG TAB PO SCH (09:46)
[2018-12-23] MEDS: Pro-Stat SF 30ml Vanilla PO SCH ×2 (09:55→18:22)
[2018-12-23] MEDS: CLOPIDOGREL BISULFATE 75 MG TAB PO SCH (10:00)
[2018-12-23] MEDS ORDERED: SODIUM CHLORIDE 0.9% 500 ML IV ONE (10:45)
[2018-12-23] MEDS ORDERED: POTASSIUM CHL 20 Meq TABLET PO ONE (10:45)
--- NOTE | 2018-12-23 11:30 | NUR ---
PT SEEN BY DR. SAXENA MADE AWARE OF PT'S LOW BP AND ELEVATED PT AND INR, MADE AWARE I HELD THE PLAVIX. HE SAID TO INFORM DR. NINO.
--- NOTE | 2018-12-23 11:34 | NUR ---
SPOKE WITH DR. NINO MADE AWARE OF PT'S LOW BP, HE ORDERED TO GIVE ONE TIME DOSE OF SOLUMEDROL AND FLORINEF, ORDERS READ BACK AND VERIFIED.
[2018-12-23] MEDS ORDERED: FLUDROCORTISONE ACETATE 0.1 MG TAB PO ONE (11:45)
[2018-12-23] MEDS ORDERED: methylPREDNISolone SOD SUCC 125 MG/2 ML VL IV ONE (11:45)
[2018-12-23] MEDS: InsuLIN REG 1unit/0.01ml Soln (100units/ml) SC SCH ×3 (12:14→22:16)
--- NOTE | 2018-12-23 19:56 | NUR ---
BLOOD BANK CALLED BLOOD BANK REGARDING PATIENT ORDER FOR 1 UNIT PRBC. PATIENT HAS TO BE TYPE & SCREEN. AWAITING FOR UNIT TO BE READY FOR TRANSFUSE. INFORMED PATIENT AND VERBALIZES UNDERSTANDS NO QUESTIONS ASKED.
[2018-12-23] MEDS: INSULIN LANTUS (GLARGINE) 1 /0.01ml (100units/ml) SC SCH (22:16)
[2018-12-24] VITALS (7 sets, daily range): BP systolic 98–139; BP diastolic 46–71
[2018-12-24] MEDS: MIDODRINE HCL 10 MG TAB PO SCH ×3 (05:57→17:21)
[2018-12-24] MEDS: InsuLIN REG 1unit/0.01ml Soln (100units/ml) SC SCH ×4 (05:57→22:47)
[2018-12-24] MEDS: ACCU-CHEK COMFORT CURVE STRIP VI SCH ×4 (05:57→22:00)
[2018-12-24] MEDS: PREGABALIN 25 MG CAP PO SCH ×3 (05:58→20:02)
[2018-12-24] MEDS: ALBUTEROL SULF 2.5 MG/0.5ML(0.5%) NEB SOLN NEB SCH ×3 (06:10→19:40)
[2018-12-24] MEDS: IPRATROPIUM BROM 0.5 MG/2.5ML INH SOL NEB SCH ×3 (06:10→19:40)
[2018-12-24] MEDS: CLOPIDOGREL BISULFATE 75 MG TAB PO SCH (09:08)
[2018-12-24] MEDS: Pro-Stat SF 30ml Vanilla PO SCH ×2 (09:08→18:23)
[2018-12-24] MEDS: PANTOPRAZOLE 40 MG TAB PO SCH (09:08)
[2018-12-24] MEDS: SODIUM BICARBONATE 650 MG TAB PO SCH ×2 (09:08→20:02)
[2018-12-24 09:09] LABS: Basophils # (auto) 0 uL; Basophils % (auto) 0.1 % (0.0-2.0); Eosinophils # (auto) 0 uL; Hematocrit 29.2 % (36.0-46.0); Hemoglobin 9.7 g/dL (12.2-16.2); Lymphocytes # (auto) 0.5 uL; Lymphocytes % (auto) 2.9 % (10.0-50.0); Mean Corpuscular Hemoglobin 30.1 pg (28.0-32.0); Mean Corpuscular Hgb Conc. 33.1 g/dL (32.0-36.0); Mean Corpuscular Volume 91.1 fL (80.0-100.0); Monocytes # (auto) 0.4 uL; Monocytes % (auto) 2.2 % (0.0-12.0); Neutrophils # (auto) 16.5 uL; Neutrophils % (auto) 94.8 % (37.0-80.0); Nucleated Red Blood Cells % 0.5 %; Platelet Count (auto) 191 10^3/uL (140-450); Red Blood Cells 3.21 10^6/uL (4.0-5.20); Red Cell Distribution Width 15.7 % (11.8-14.3); White Blood Cell 17.4 10^3/uL (4.4-10.8)
[2018-12-24] MEDS: DOBUTamine 1000MCG/ML 250 ML IV SCH ×3 (09:09→20:02)
[2018-12-24 09:24] LABS: Albumin 2.4 g/dL (3.4-5.0); Calcium 8.2 mg/dL (8.5-10.1); Potassium 3.4 mmol/L (3.5-5.1)
[2018-12-24 09:28] LABS: Bilirubin, Total 0.4 mg/dL (0.2-1.0); Total Protein 6.2 g/dL (6.4-8.2)
[2018-12-24 09:29] LABS: Prothrombin Time 56.8 sec (9.27-12.13)
[2018-12-24 09:36] LABS: INR 5.87 (0.9-1.15)
--- NOTE | 2018-12-24 14:00 | NUR ---
Dr. Hackett at bedside.
--- NOTE | 2018-12-24 16:38 | NUR ---
MID Line Dressing Changes MID line dressing change done with a sterile technique. Cleansed with chloraprep scrub/betadine. Stat lock, and bio-patch as available. Occlusive dressing applied. Changed claves weekly and post lab draw. See e-MAR for medications given during this visit.
[2018-12-24] MEDS: SODIUM CHLORIDE 0.9% 1,000 ML IV SCH (18:15)
--- NOTE | 2018-12-24 20:06 | NUR ---
RIGHT HAND NUMBNESS PATIENT C/O NUMBNESS TO 4TH AND 5TH DIGIT ON RIGHT HAND AND UNABLE TO BEND THOSE FINGER. PATIENT HAS BRUISING TO BILATERAL UPPER EXTREMITIES. RADIAL PULSES PALPABLE TO BILATERAL UPPER EXTREMITIES. PATIENT CURRENT INR 5.87 BUT TRENDING DOWN. WILL PAGE HOSPITALIST.
[2018-12-24] MEDS: INSULIN LANTUS (GLARGINE) 1 /0.01ml (100units/ml) SC SCH (22:47)
[2018-12-25] MEDS: HYDROcodone-ACET 5/325MG TAB PO PRN ×2 (03:05→09:53)
[2018-12-25] MEDS: MIDODRINE HCL 10 MG TAB PO SCH ×3 (04:30→18:25)
[2018-12-25] MEDS: DOBUTamine 1000MCG/ML 250 ML IV SCH (04:30)
[2018-12-25] MEDS: PREGABALIN 25 MG CAP PO SCH ×3 (04:30→21:18)
[2018-12-25 05:47] VITALS: BP 123/60
[2018-12-25] MEDS: ACCU-CHEK COMFORT CURVE STRIP VI SCH ×4 (06:23→21:18)
[2018-12-25] MEDS: InsuLIN REG 1unit/0.01ml Soln (100units/ml) SC SCH ×4 (06:23→22:00)
[2018-12-25 06:42] LABS: INR 2.65 (0.9-1.15); Prothrombin Time 26.8 sec (9.27-12.13)
[2018-12-25] MEDS: ALBUTEROL SULF 2.5 MG/0.5ML(0.5%) NEB SOLN NEB SCH ×5 (07:21→23:44)
[2018-12-25] MEDS: IPRATROPIUM BROM 0.5 MG/2.5ML INH SOL NEB SCH ×5 (07:21→23:44)
[2018-12-25] MEDS: Pro-Stat SF 30ml Vanilla PO SCH ×2 (08:00→18:26)
[2018-12-25 09:00] VITALS: BP 134/68
[2018-12-25] MEDS: SODIUM BICARBONATE 650 MG TAB PO SCH ×2 (09:53→21:18)
[2018-12-25] MEDS: PANTOPRAZOLE 40 MG TAB PO SCH (09:54)
[2018-12-25] MEDS: CLOPIDOGREL BISULFATE 75 MG TAB PO SCH (09:55)
--- NOTE | 2018-12-25 10:00 | NUR ---
Nephro at bedside MD Angel at bedside, aware of patients status, abnormal labs, VS including BP. New orders received. Will d/c Dobutamine and NS, will order PT and peritoneal dialysis q6hr with 2.5% dextrose bags and 1000 units of heparin in each bag. Will cont care
--- NOTE | 2018-12-25 11:57 | NUR ---
Hospitalist at bedside MD Salcido at bedside, aware of patients status. Awaiting new orders
[2018-12-25 13:35] VITALS: BP 131/65
[2018-12-25] MEDS ORDERED: MORPHINE SULF INJ 2 MG/ML SYRINGE 1ML IV PRN (14:15)
--- NOTE | 2018-12-25 14:51 | NUR ---
PT Patient refused to be OOB during PT visit and wanted to have more sleep. Educated pt on the importance and benefits of PT, patient still refused. LUIGI Marquez was notified of pt's refusal. Addendum: 12/25/18 at 1453 by TAL BARRAGAN PTT Amended: Links added.
[2018-12-25 17:00] VITALS: BP 73/50
[2018-12-25] MEDS: HEPARIN SODIUM IP SCH (18:15)
[2018-12-25] MEDS: PERITONEAL DIALYSIS 2.5% IP SCH (18:15)
--- NOTE | 2018-12-25 18:15 | NUR ---
Peritoneal Dialysis PD started as ordered with initial bag of 2200ml. Patient draining at this time. Will cont to monitor
--- NOTE | 2018-12-25 18:45 | NUR ---
PD output PD output at this time is 2600ml. Dialysate started to go in at this time. Will cont to monitor
--- NOTE | 2018-12-25 19:00 | NUR ---
Patient care endorsed Dwelling time started at this time with 2200ml of dialysate in. Patient care endorsed to Gladis guaman. Output charted under intake output intervention "other output". No distress or sob noted. Patient assessed at bedside with Ruperto rn and noted to be tolerating well, instructed to call for assistance prn.
[2018-12-25 21:30] VITALS: BP 101/48
[2018-12-25] MEDS: INSULIN LANTUS (GLARGINE) 1 /0.01ml (100units/ml) SC SCH (22:00)
[2018-12-26] MEDS: HEPARIN SODIUM IP SCH ×5 (00:29→23:45)
[2018-12-26] MEDS: PERITONEAL DIALYSIS 2.5% IP SCH ×5 (00:29→23:45)
--- NOTE | 2018-12-26 01:18 | NUR ---
Respiratory note: PT SLEEPING. 0000 MED NEB TX NOT INDICATED AT THIS TIME. PT HR 69 RR 18 SPO2 100% ON 1LPM NC BS CLEAR DIMINISHED BILATERALLY. PT REMAINS STABLE AT THIS TIME WILL CONTINUE TO MONITOR PT ORDERED.
[2018-12-26 05:00] VITALS: BP 92/60
[2018-12-26] MEDS: MIDODRINE HCL 10 MG TAB PO SCH ×3 (05:12→18:11)
[2018-12-26] MEDS: PREGABALIN 25 MG CAP PO SCH ×3 (05:18→22:34)
[2018-12-26] MEDS: InsuLIN REG 1unit/0.01ml Soln (100units/ml) SC SCH ×4 (05:45→22:35)
[2018-12-26] MEDS: ACCU-CHEK COMFORT CURVE STRIP VI SCH ×4 (05:46→22:35)
[2018-12-26 06:40] LABS: INR 1.4 (0.9-1.15); Prothrombin Time 14.7 sec (9.27-12.13)
[2018-12-26 06:42] LABS: Hematocrit 28.4 % (36.0-46.0); Hemoglobin 9.4 g/dL (12.2-16.2); Mean Corpuscular Hemoglobin 30.4 pg (28.0-32.0); Mean Corpuscular Hgb Conc. 33.1 g/dL (32.0-36.0); Mean Corpuscular Volume 91.9 fL (80.0-100.0); Platelet Count (auto) 178 10^3/uL (140-450); Red Blood Cells 3.09 10^6/uL (4.0-5.20); Red Cell Distribution Width 15.8 % (11.8-14.3); White Blood Cell 11.3 10^3/uL (4.4-10.8)
[2018-12-26 06:45] LABS: Band Neutrophils % (manual) 0; Basophils % (manual) 0 (0.0-2.0); Blast Cells 0; Lactic Acid w/Reflex 2.2 mmol/L (0.4-2.0); Magnesium 1.6 mg/dL (1.6-2.6); Metamyelocytes % 0; Monocytes % (manual) 0 (0-12); Myelocytes % 0; Promyelocytes % 0; Reactive Lymphocytes 0
[2018-12-26 06:47] LABS: BUN/Creatinine Ratio 6.7; Calcium 7.4 mg/dL (8.5-10.1)
[2018-12-26 06:53] LABS: Potassium 2.8 mmol/L (3.5-5.1)
--- NOTE | 2018-12-26 06:54 | NUR ---
HYPOKALEMIA PATIENT K-2.8 HOSPITALIST PAGED AWAITING CALL BACK.
[2018-12-26 07:17] LABS: Eosinophils % (manual) 2 (0-7); Lymphocytes % (manual) 9 (10.0-50.0)
[2018-12-26] MEDS: ALBUTEROL SULF 2.5 MG/0.5ML(0.5%) NEB SOLN NEB SCH ×4 (07:22→22:24)
[2018-12-26] MEDS: IPRATROPIUM BROM 0.5 MG/2.5ML INH SOL NEB SCH ×4 (07:23→22:23)
[2018-12-26] MEDS ORDERED: POTASSIUM CHL 20 Meq TABLET PO ONE (07:30)
[2018-12-26] MEDS: Pro-Stat SF 30ml Vanilla PO SCH ×2 (08:00→18:11)
--- NOTE | 2018-12-26 08:03 | NUR ---
INFORMATION PROVIDED TO [facility] FOR SNF PLACEMENT. [facility] WILL ASSIST WITH SNF PLACEMENT. ORDER AND CLINICALS TO BE FAXED TO [phone]. PHONE NUMBER [phone]
--- NOTE | 2018-12-26 08:37 | NUR ---
ORDER AND CLINICALS FAXED TO [facility] AT THE REQUEST OF DIGNA WHITING.
[2018-12-26 09:00] VITALS: BP 105/72
[2018-12-26] MEDS: SODIUM BICARBONATE 650 MG TAB PO SCH ×2 (09:18→22:34)
[2018-12-26] MEDS: CLOPIDOGREL BISULFATE 75 MG TAB PO SCH (09:18)
[2018-12-26] MEDS: PANTOPRAZOLE 40 MG TAB PO SCH (09:18)
[2018-12-26] MEDS: HYDROcodone-ACET 5/325MG TAB PO PRN ×2 (09:19→19:59)
[2018-12-26] MEDS ORDERED: PERITONEAL DIALYSIS 2.5% IP SCH (10:00)
[2018-12-26] MEDS ORDERED: HEPARIN SODIUM IP SCH (10:00)
--- NOTE | 2018-12-26 11:29 | NUR ---
PER REAGAN AT [facility] [phone] THEY ARE NOT CONTRACTED WITH ANY SNF THAT WILL ACCOMMODATE PERITONEAL DIALYSIS. THEY ALSO WILL NOT AUTHORIZE HOME HEALTH BECAUSE THE PATIENT IS OUT OF AREA. DIGNA IN ILLUMINATING ENGINEER NOTIFIED.
--- NOTE | 2018-12-26 11:59 | NUR ---
Nutrition Follow-up Notes Wt.: 109.5 kg Pt was sleeping with no family by beside when rounded this am. per records pt had PD every night. pt with no distress noted per nursing. pt is currently on CCHO 60 gm cardiac renal std diet with prostat 1 packet bid with inadequate PO of avg 50% x 2 days per RN doc. Est. Needs: 1800 kcal to 2300 kcal (20-25 kcal/kgBW), 92 gms to 138 gms pro (1.0-1.5 gms/kgBW d/t ESRD on PD, severe hypoalbuminemia). Will continue to monitor pertinent labs and reassess nutrient needs prn Labs: BUN 41 H, CREAT 6.09 H, CA 7.4 L, GLU 125 H Skin: Dung scale 15, mod risk, skin intact per per recreation therapy director. GI: Pt had 1 BM on 12/25 per recreation therapy director. PES: Altered nutrition related lab values r/t current/chronic medical condition aeb hyperglycemia, hyponatremia, hypokalemia, hypocapnia, elev. renal labs, lactic acid, AST,hypocalcemia and severe hypoalbuminemia Increased nutrient needs r/t current medical condition aeb ESRD on PD, severe hypoalbuminemia, wound healing Obesity r/t excessive PO intake aeb 155% IBW, BMI 32.6 kg/m2 and increased body adiposity Will continue to monitor PO intake, skin status, pertinent labs and weight trend. F/u in 3-5 days Rec.: 1.) Consider daily Nephrovite and Asc acid 500 mgs BID prn. 2.) Consider nephro carb steady 1 carton bid if Po continues to be low. 3) Continue close supervision and feeding assistance prn during meals. 3.) Refer to CDE/RD for further nutrition educ. and weight monitoring upon discharge. 4.) Continue current plan of care.
--- NOTE | 2018-12-26 12:40 | NUR ---
PD Output 1600 ml output of clear yellow fluid noted to PD Bag. 1800ml dialysate in at this time. Starting dwell time. Will cont to monitor
[2018-12-26 13:13] VITALS: BP 99/66
--- NOTE | 2018-12-26 13:32 | NUR ---
Spoke to Manufacturing Sr Engineer MD Li at bedside, aware of patients status including labs, VS, abnormal k+ levels. New orders received for CMP today. Will cont to monitor
[2018-12-26 14:42] VITALS: BP 99/66
--- NOTE | 2018-12-26 15:51 | NUR ---
ORDER AND CLINICALS FAXED TO [facility] REQUESTING WHEELCHAIR. PHONE [phone] EXT [phone]
[2018-12-26 16:47] LABS: Anion Gap 15 (5-15); Aspartate Aminotransferase 43 U/L (15-37); BUN/Creatinine Ratio 6.6; Blood Urea Nitrogen 40 mg/dL (7-18); Calcium 7.1 mg/dL (8.5-10.1); Carbon Dioxide 18 mmol/L (21-32); Chloride 95 mmol/L (98-107); GFR African American 9 mL/min; GFR Non-African American 7 mL/min; Glucose 186 mg/dL (74-106); Potassium 4.4 mmol/L (3.5-5.1); Sodium 128 mmol/L (136-145)
[2018-12-26 16:50] LABS: Alanine Aminotransferase 33 U/L (13-56); Alkaline Phosphatase 347 U/L (45-117); Bilirubin, Total 0.5 mg/dL (0.2-1.0); Total Protein 5.6 g/dL (6.4-8.2)
[2018-12-26 17:00] VITALS: BP 80/58
[2018-12-26] MEDS ORDERED: WARFARIN SODIUM 2.5 MG TAB PO ONE (17:00)
--- NOTE | 2018-12-26 18:38 | NUR ---
PD Output output 1500ml clear yellow fluid. Dialysate 1700ml in. Start dwell time. Will cont to monitor
--- NOTE | 2018-12-26 19:00 | NUR ---
Patient care endorsed endorsed care to Mauro guaman. Patient laying down in bed no acute distress or sob noted. Call light within reach and fall precs in place per protocol
[2018-12-26 22:27] VITALS: BP 107/41
[2018-12-26] MEDS: INSULIN LANTUS (GLARGINE) 1 /0.01ml (100units/ml) SC SCH (22:35)
--- NOTE | 2018-12-27 00:30 | NUR ---
PD out put of 1,500ml
[2018-12-27 05:30] VITALS: BP 92/60
[2018-12-27] MEDS: IPRATROPIUM BROM 0.5 MG/2.5ML INH SOL NEB SCH ×4 (05:46→22:39)
[2018-12-27] MEDS: ALBUTEROL SULF 2.5 MG/0.5ML(0.5%) NEB SOLN NEB SCH ×4 (05:46→22:39)
[2018-12-27 05:55] LABS: Hematocrit 28.8 % (36.0-46.0); Hemoglobin 9.9 g/dL (12.2-16.2); Mean Corpuscular Hemoglobin 31.1 pg (28.0-32.0); Mean Corpuscular Hgb Conc. 34.3 g/dL (32.0-36.0); Mean Corpuscular Volume 90.8 fL (80.0-100.0); Platelet Count (auto) 157 10^3/uL (140-450); Red Blood Cells 3.17 10^6/uL (4.0-5.20); Red Cell Distribution Width 15.8 % (11.8-14.3); White Blood Cell 14.3 10^3/uL (4.4-10.8)
[2018-12-27 06:06] LABS: INR 1.17 (0.9-1.15); Prothrombin Time 12.4 sec (9.27-12.13)
[2018-12-27] MEDS: MIDODRINE HCL 10 MG TAB PO SCH ×3 (06:11→17:59)
[2018-12-27] MEDS: PREGABALIN 25 MG CAP PO SCH ×3 (06:11→21:44)
[2018-12-27] MEDS: PERITONEAL DIALYSIS 2.5% IP SCH ×3 (06:13→18:00)
[2018-12-27] MEDS: HEPARIN SODIUM IP SCH ×3 (06:13→18:00)
[2018-12-27 06:51] LABS: Basophils % (manual) 0 (0.0-2.0); Blast Cells 0; Eosinophils % (manual) 0 (0-7); Metamyelocytes % 0; Promyelocytes % 0; Reactive Lymphocytes 0
[2018-12-27] MEDS: InsuLIN REG 1unit/0.01ml Soln (100units/ml) SC SCH ×4 (07:00→21:56)
[2018-12-27] MEDS: ACCU-CHEK COMFORT CURVE STRIP VI SCH ×4 (07:00→21:56)
--- NOTE | 2018-12-27 07:00 | NUR ---
PD output of 1,500ml of clear yellow fluid.
[2018-12-27 07:39] LABS: Band Neutrophils % (manual) 2; Lymphocytes % (manual) 4 (10.0-50.0); Monocytes % (manual) 4 (0-12); Myelocytes % 1
[2018-12-27 09:01] VITALS: BP 106/53
[2018-12-27] MEDS: Pro-Stat SF 30ml Vanilla PO SCH ×2 (09:26→18:07)
[2018-12-27] MEDS: PANTOPRAZOLE 40 MG TAB PO SCH (09:43)
[2018-12-27] MEDS: CLOPIDOGREL BISULFATE 75 MG TAB PO SCH (09:43)
[2018-12-27] MEDS: SODIUM BICARBONATE 650 MG TAB PO SCH ×2 (09:43→21:44)
--- NOTE | 2018-12-27 11:03 | NUR ---
PT Patient eating during morning PT visit. Addendum: 12/27/18 at 1104 by TAL BARRAGAN PTT Amended: Links added.
--- NOTE | 2018-12-27 12:20 | NUR ---
PD OUTPUT OUTPUT IS 1800ML DIALYSATE 1900 IN. START DWELL TIME
[2018-12-27 12:44] VITALS: BP 100/55
--- NOTE | 2018-12-27 13:10 | NUR ---
SPOKE TO NEPHRO MD FAROOQ AWARE OF PATIENTS STATUS. NEW ORDERS RECEIVED FOR ALBUMIN Q8HR X3. WILL MEDICATE ORDERED AND CONT CARE.
--- NOTE | 2018-12-27 13:10 | NUR ---
Spoke to Hospitalist MD Angel spoke states he spoke to Hospitalist MD Salcido regarding pt status and POC. MD Angel states that pt will go home tomorrow with HH?. Will cont care
[2018-12-27] MEDS: ALBUMIN 25% 100 ML IV SCH ×2 (14:08→21:05)
[2018-12-27 16:43] VITALS: BP 104/55
[2018-12-27] MEDS ORDERED: WARFARIN SODIUM 5 MG TAB PO ONE (17:00)
[2018-12-27] MEDS ORDERED: WARFARIN SODIUM 10 MG TAB PO ONE (17:00)
--- NOTE | 2018-12-27 18:35 | NUR ---
PD output output is 1300 ml clear yellow fluid. Dialysate administered 1600. Start dwelling time. Will endorse to oncoming rn
--- NOTE | 2018-12-27 19:10 | NUR ---
PATIENT CARE ENDORSED ENDORSED CARE TO CIPRIANO MEYERS. NO S/S OF ACUTE DISTRESS OR SOB. CALL LIGHT WITHIN REACH, BED ALARM ON.
[2018-12-27] MEDS: INSULIN LANTUS (GLARGINE) 1 /0.01ml (100units/ml) SC SCH (21:56)
[2018-12-27 22:38] VITALS: BP 100/34
[2018-12-28] VITALS (7 sets, daily range): BP systolic 81–116; BP diastolic 41–79
--- NOTE | 2018-12-28 | NUR ---
PD OUTPUT 1200 MLS Addendum: 12/28/18 at 0157 by Marta Bay RN PD OUTPUT IS 1400 MLS PD INPUT IS 1200 MLS START DWELL TIME
[2018-12-28] MEDS: HEPARIN SODIUM IP SCH ×4 (00:13→17:48)
[2018-12-28] MEDS: PERITONEAL DIALYSIS 2.5% IP SCH ×4 (00:13→17:48)
[2018-12-28] MEDS: ALBUMIN 25% 100 ML IV SCH (05:01)
--- NOTE | 2018-12-28 05:15 | NUR ---
MIDLINE NOT FLUSHING. WILL ENDORSE TO DAY SHIFT NURSE TO HAVE MIDLINE NURSE ASSESS LINE.
--- NOTE | 2018-12-28 06:05 | NUR ---
PD OUTPUT 1100 MLS PD INPUT 1300 MLS DWELL TIME START
[2018-12-28] MEDS: IPRATROPIUM BROM 0.5 MG/2.5ML INH SOL NEB SCH ×2 (06:30→18:56)
[2018-12-28] MEDS: ALBUTEROL SULF 2.5 MG/0.5ML(0.5%) NEB SOLN NEB SCH ×3 (06:31→18:56)
--- NOTE | 2018-12-28 06:39 | NUR ---
SP02 100% ON 5LPM NC, DECREASED TO 4LPM NC. Addendum: 12/28/18 at 0640 by Sharita Muñoz RT Amended: Links added.
[2018-12-28] MEDS: PREGABALIN 25 MG CAP PO SCH ×3 (06:52→22:00)
[2018-12-28] MEDS: ACCU-CHEK COMFORT CURVE STRIP VI SCH ×4 (06:53→22:00)
[2018-12-28] MEDS: InsuLIN REG 1unit/0.01ml Soln (100units/ml) SC SCH ×4 (06:53→22:00)
[2018-12-28] MEDS: MIDODRINE HCL 10 MG TAB PO SCH ×3 (06:53→18:23)
[2018-12-28 06:58] LABS: Hemoglobin 8.8 g/dL (12.2-16.2); Mean Corpuscular Hemoglobin 31.7 pg (28.0-32.0); Mean Corpuscular Hgb Conc. 32.7 g/dL (32.0-36.0); Mean Corpuscular Volume 96.9 fL (80.0-100.0); Platelet Count (auto) 130 10^3/uL (140-450); Red Blood Cells 2.78 10^6/uL (4.0-5.20); Red Cell Distribution Width 16.4 % (11.8-14.3); White Blood Cell 12.2 10^3/uL (4.4-10.8)
[2018-12-28 07:05] LABS: INR 1.27 (0.9-1.15); Prothrombin Time 13.4 sec (9.27-12.13)
[2018-12-28 07:06] LABS: Albumin 2.7 g/dL (3.4-5.0); BUN/Creatinine Ratio 6.3; Calcium 7.2 mg/dL (8.5-10.1)
[2018-12-28 07:08] LABS: Bilirubin, Total 0.6 mg/dL (0.2-1.0); Total Protein 5.8 g/dL (6.4-8.2)
[2018-12-28 07:12] LABS: Potassium 2.8 mmol/L (3.5-5.1)
[2018-12-28 07:18] LABS: Basophils % (manual) 0 (0.0-2.0); Blast Cells 0; Metamyelocytes % 0; Myelocytes % 0; Promyelocytes % 0; Reactive Lymphocytes 0
--- NOTE | 2018-12-28 07:20 | NUR ---
Opening Shift Note Assumed care of patient, patient is lethargic, she can be aroused by name though but looks very lethargic. No S/S of distress/SOB or pain. Instructed on POC and to call for assist PRN, will continue to monitor for changes Q1hr and PRN.
[2018-12-28] MEDS: Pro-Stat SF 30ml Vanilla PO SCH ×2 (08:00→18:00)
[2018-12-28 09:23] LABS: Band Neutrophils % (manual) 1; Eosinophils % (manual) 2 (0-7); Lymphocytes % (manual) 5 (10.0-50.0); Monocytes % (manual) 4 (0-12)
[2018-12-28] MEDS: SODIUM BICARBONATE 650 MG TAB PO SCH ×2 (10:12→22:19)
[2018-12-28] MEDS: PANTOPRAZOLE 40 MG TAB PO SCH (10:12)
[2018-12-28] MEDS: CLOPIDOGREL BISULFATE 75 MG TAB PO SCH (10:13)
[2018-12-28] MEDS ORDERED: POTASSIUM CHL 20 Meq TABLET PO ONE (10:15)
--- NOTE | 2018-12-28 10:15 | NUR ---
Dr. Salcido is aware of left toes discoloration in the patient.
--- NOTE | 2018-12-28 10:20 | NUR ---
Dr. Salcido informed of patient being so lethargic, BP low at 81/48 this morning and potassium at critical level-2.8. said to give Potassium 40 meq po. Will continue to monitor patient.
[2018-12-28] MEDS: DEXTROSE (50%) 50ML SYRG IV PRN (11:23)
--- NOTE | 2018-12-28 11:57 | NUR ---
PT. REFUSED HER MED NEB TX. , DUE TO HER GETTING HER DIALYSIS. PT. STATES SHE WILL TAKE THE NEXT TX. NO TX. GIVEN AT THIS TIME. RN. AT THE BEDSIDE AND VISITOR, WILL SEE PT. AT NEXT SCHEDULED TIME.
--- NOTE | 2018-12-28 12:00 | NUR ---
Peritoneal Dialysis Out-1,150mls, clear In- 2,000 ml.
[2018-12-28] MEDS ORDERED: HYDROcodone-ACET 5/325MG TAB PO PRN (12:30)
[2018-12-28] MEDS ORDERED: MORPHINE SULF INJ 2 MG/ML SYRINGE 1ML IV PRN (12:30)
--- NOTE | 2018-12-28 13:15 | NUR ---
WOUND CARE NOTE: Weekly reevaluation by wound care team. Wound care team has been following due to low Dung score. Last Dung score is 15. Patient is resting, no signs/symptoms of pain. Patient remains to have several scabs to right foot toes. No open draining wounds noted. No other open wounds. Patient and family to have discussion today about possible hospice. RECOMMENDATIONS: Nursing to continue with previous wound/skin care; wound care team to follow while Dung is <18.
--- NOTE | 2018-12-28 13:19 | NUR ---
SPOKE WITH REAGAN AT [facility]. REAGAN STATES THEY WILL NOT TRANSFER PATIENT BACK IN NETWORK UNLESS IT IS FOR A HIGHER LEVEL OF CARE. THEY WILL NOT TRANSFER FOR SOCIAL REASONS. PAGED DR BEARD 2 TIMES TO EXPLAIN, NO CALL BACK OF YET.
--- NOTE | 2018-12-28 13:50 | NUR ---
Dr. Salcido said to hold warfarin tonight.
[2018-12-28] MEDS ORDERED: HEPARIN SODIUM (PORCINE) 5000 UNITS/ML 1ML VIAL SC ONE (14:15)
[2018-12-28] MEDS ORDERED: ENOXAPARIN SOD 120 MG/0.8 ML SYRINGE SC SCH (14:15)
--- NOTE | 2018-12-28 15:10 | NUR ---
box toe maker are with the family and the patient at bedside to discuss about hospice care for patient.
--- NOTE | 2018-12-28 15:20 | NUR ---
Patient and family refused the blood draw for potassium and tricot knitting machine operator who is at bedside said that Dr. Salcido is aware that patient refused.
--- NOTE | 2018-12-28 16:15 | NUR ---
re-assessment Per consult hospice eval. Patients daughter Karis has requested to speak with [facility] at bedside. Berkley from [facility] has met Karis and patient at bedside. Patient and Karis has signed on with hospice. Waiting for discharge now. Addendum: 12/29/18 at 1305 by Angelika Walker Amended: Links added.
[2018-12-28] MEDS ORDERED: WARFARIN SODIUM 2.5 MG TAB PO ONE (17:00)
--- NOTE | 2018-12-28 18:00 | NUR ---
Peritoneal Dialysis Out-1,500 mls, clear In- 2,000 ml.
--- NOTE | 2018-12-28 20:00 | NUR ---
OPENING SHIFT NOTE: PATIENT IS VERY LETHARGIC BUT AROUSABLE TO STIMULATION. STATED SHE HAS BEEN FEELING LIKE THIS FOR A COUPLE DAYS. BEDSIDE RAILS UP X2, EXTREMITIES ARE RESTING ON PILLOWS, 4+ PITTING IN BOTH FEET. SOME BRUISING IN THE RIGHT FOREARM AREA. VERBALIZED TO PATIENT IF SHE NEEDS HELP TO USE CALL LIGHT. WILL CONTINUE TO MONITOR.
[2018-12-28] MEDS ORDERED: INSULIN LANTUS (GLARGINE) 1 /0.01ml (100units/ml) SC SCH (22:00)
[2018-12-28] MEDS ORDERED: HEPARIN SODIUM (PORCINE) 5000 UNITS/ML 1ML VIAL SC SCH (22:00)
--- NOTE | 2018-12-28 22:00 | NUR ---
PATIENT HAD GLUCOSE LEVEL OF 163 BUT I HELD THE REGULAR INSULIN BECAUSE SHE IS NOT EATING ANY FOOD BUT I DID GIVE THE LANTUS 10 UNITS.
[2018-12-28] MEDS: APIXABAN 2.5 MG TAB PO SCH (22:20)
--- NOTE | 2018-12-28 23:15 | NUR ---
PATIENT IS VERY CONFUSED. AFTER MYSELF AND GROUNDS KEEPER HAD CHANGED HER SHE ASKED "WHERE AM I?" AND "DID YOU ALREADY TURN ME TO CLEAN ME?" IN WHICH SHE WAS UNAWARE THAT SHE HAD A BM.
[2018-12-29] MEDS: HEPARIN SODIUM IP SCH ×3 (00:16→12:13)
[2018-12-29] MEDS: PERITONEAL DIALYSIS 2.5% IP SCH ×3 (00:16→12:13)
--- NOTE | 2018-12-29 00:16 | NUR ---
PERITONEAL DIALYSIS: PATIENT WAS STARTED ON DRAINING PREVIOUS FLUID OUT.
[2018-12-29 00:50] VITALS: BP 115/56
--- NOTE | 2018-12-29 00:50 | NUR ---
PERITONEAL DIALYSIS: 1480 ML REMOVED. INFUSION STARTED
--- NOTE | 2018-12-29 02:20 | NUR ---
ALL 2000 ML OF DIALYSIS FLUID FINISHED INFUSING. PORT CLOSED AND CAPPED OFF WITH IODINE CAP.
[2018-12-29 05:09] VITALS: BP 114/54
[2018-12-29] MEDS: MIDODRINE HCL 10 MG TAB PO SCH ×2 (05:38→12:28)
--- NOTE | 2018-12-29 06:15 | NUR ---
1200 ml of peritoneal fluid from PD. Total of 2000 ml infusion at 0000.
[2018-12-29 06:20] LABS: Hematocrit 24.2 % (36.0-46.0); Mean Corpuscular Hemoglobin 30.7 pg (28.0-32.0); Mean Corpuscular Hgb Conc. 33.2 g/dL (32.0-36.0); Mean Corpuscular Volume 92.4 fL (80.0-100.0); Platelet Count (auto) 123 10^3/uL (140-450); Red Blood Cells 2.62 10^6/uL (4.0-5.20); White Blood Cell 7.6 10^3/uL (4.4-10.8)
[2018-12-29 06:24] LABS: BUN/Creatinine Ratio 6.6; Calcium 7.7 mg/dL (8.5-10.1); INR 1.44 (0.9-1.15); Potassium 3.1 mmol/L (3.5-5.1); Prothrombin Time 15.1 sec (9.27-12.13)
--- NOTE | 2018-12-29 06:30 | NUR ---
Start of PD; 2000 ml bag started for infusion.
[2018-12-29] MEDS: PREGABALIN 25 MG CAP PO SCH ×2 (06:33→14:00)
[2018-12-29] MEDS: InsuLIN REG 1unit/0.01ml Soln (100units/ml) SC SCH ×3 (06:33→17:00)
[2018-12-29] MEDS: ACCU-CHEK COMFORT CURVE STRIP VI SCH ×3 (06:34→17:00)
[2018-12-29] MEDS: ALBUTEROL SULF 2.5 MG/0.5ML(0.5%) NEB SOLN NEB SCH ×3 (06:46→12:56)
[2018-12-29] MEDS: IPRATROPIUM BROM 0.5 MG/2.5ML INH SOL NEB SCH ×3 (06:46→12:56)
[2018-12-29 07:11] LABS: Band Neutrophils % (manual) 0; Basophils % (manual) 0 (0.0-2.0); Blast Cells 0; Metamyelocytes % 0; Myelocytes % 0; Promyelocytes % 0; Reactive Lymphocytes 0
--- NOTE | 2018-12-29 07:45 | NUR ---
Opening Shift Note Assumed care of patient, asleep. No S/S of distress/SOB or pain. Will continue to monitor for changes Q1hr and PRN.
[2018-12-29] MEDS: Pro-Stat SF 30ml Vanilla PO SCH (08:00)
[2018-12-29 09:23] VITALS: BP 100/51
[2018-12-29 09:30] LABS: Eosinophils % (manual) 3 (0-7); Lymphocytes % (manual) 5 (10.0-50.0); Monocytes % (manual) 5 (0-12)
[2018-12-29] MEDS: SODIUM BICARBONATE 650 MG TAB PO SCH (09:48)
[2018-12-29] MEDS: APIXABAN 2.5 MG TAB PO SCH (09:48)
[2018-12-29] MEDS: PANTOPRAZOLE 40 MG TAB PO SCH (09:48)
[2018-12-29] MEDS ORDERED: CLOPIDOGREL BISULFATE 75 MG TAB PO SCH (10:00)
--- NOTE | 2018-12-29 10:00 | NUR ---
Family at bedside, updated of the POC.
--- NOTE | 2018-12-29 11:25 | NUR ---
Nutrition Follow-up Notes Wt.: 111.8 kg Pt was sleeping with no family by beside when rounded this am. per records pt had PD every night. pt with no distress noted per nursing. pt is currently on CCHO 60 gm cardiac renal std diet with prostat 1 packet bid with inadequate PO of < 50% x 2 days per RN doc. Est. Needs: 1800 kcal to 2300 kcal (20-25 kcal/kgBW), 92 gms to 138 gms pro (1.0-1.5 gms/kgBW d/t ESRD on PD, severe hypoalbuminemia). Will continue to monitor pertinent labs and reassess nutrient needs prn Labs: BUN 42 H, CREAT 6.4 H, GLU 185 H, CA 7.7 L. Skin: Dung scale 14, mod risk, skin intact, old scabs per per office machine punch operator. refer to notes for details GI: Pt had 1 BM today per office machine punch operator. PES: Altered nutrition related lab values r/t current/chronic medical condition aeb hyperglycemia, hyponatremia, hypokalemia, hypocapnia, elev. renal labs, lactic acid, AST,hypocalcemia and severe hypoalbuminemia Increased nutrient needs r/t current medical condition aeb ESRD on PD, severe hypoalbuminemia, wound healing Obesity r/t excessive PO intake aeb 155% IBW, BMI 32.6 kg/m2 and increased body adiposity Will continue to monitor PO intake, skin status, pertinent labs and weight trend. F/u in 3-5 days Rec.: 1.) Consider daily Nephrovite and Asc acid 500 mgs BID prn. 2.) Consider nephro carb steady 1 carton bid if Po continues to be low. 3) Continue close supervision and feeding assistance prn during meals. 3.) Refer to CDE/RD for further nutrition educ. and weight monitoring upon discharge. 4.) Continue current plan of care.
--- NOTE | 2018-12-29 12:15 | NUR ---
Peritoneal dialysis out- 1000 ml clear fluid in- 2000 ml
[2018-12-29] MEDS ORDERED: MAGNESIUM SULFATE 1GM/100ML 100 ML IV ONE (12:45)
[2018-12-29] MEDS ORDERED: POTASSIUM CHL 10 Meq TABLET PO ONE (12:45)
[2018-12-29] MEDS ORDERED: PREG100C PO (12:58)
[2018-12-29] MEDS ORDERED: APIX2.5T PO (13:00)
[2018-12-29] MEDS ORDERED: SODI650T PO (13:00)
[2018-12-29] MEDS ORDERED: CLOP75TA28 PO (13:00)
[2018-12-29] MEDS ORDERED: MID10T PO (13:00)
--- NOTE | 2018-12-29 13:01 | NUR ---
re-assessment Patient is being discharged now per Dr Salcido. All equipment has been delivered to patients home. Patient will be transported home by [facility] at 2pm today post discharge. Jason MEYERS has been notified. Patient agrees to discharge plan home on hospice. Addendum: 12/29/18 at 1305 by Angelika WHITING Amended: Links added.
--- NOTE | 2018-12-29 13:04 | NUR ---
Called [facility] pharmacy to deliver prescribed home meds at bedside as requested by Dr. Salcido.
--- NOTE | 2018-12-29 13:12 | NUR ---
Received call from Anum from [facility], updated that patient will be picked up at 5 pm.
[2018-12-29 13:20] VITALS: BP 85/52
--- NOTE | 2018-12-29 17:00 | NUR ---
Spoke to patient's , Kwame, about peritoneal dialysis. Kwame states he will drain the fluid when they get back home and will do peritoneal dialysis.
--- NOTE | 2018-12-29 17:40 | NUR ---
Discharge instructions given as ordered. Patient will be followed by hospice doctor. All questions and concerns addressed. Patient verbalized understanding. Medication reconciliation form completed and copy given to patient. IV removed with catheter intact, pressure dressing applied. Telemetry unit returned to [facility]. Wound photo taken. MRSA swab done and sent to lab as patient was admitted to ICU. Patient was picked up by [facility] with all personal belongings accompanied by family member. No distress noted at time of departure.
== END 2018-12-29 19:20 | disposition hospice, home (50) | DRG 853 ==
LOC: EDBD 11:34 → ER 11:37 → TELE 15:57 → ICU WEST 12-13 22:25 → TELE-WESTW 12-17 15:56 → DOU IN ICU 12-17 16:29 → TELE-WESTW 12-17 16:43
PROVIDERS: ADMIT Nurse Practitioner Acute Care; ATTEND Internal Medicine
PROC: 047N3ZZ Dilation of Left Popliteal Artery, Percutaneous Approach (ICD-10-PCS; principal; 2018-12-13)
PROC: 047Q3ZZ Dilation of Left Anterior Tibial Artery, Percutaneous Approach (ICD-10-PCS; 2018-12-13)
PROC: 047U3ZZ Dilation of Left Peroneal Artery, Percutaneous Approach (ICD-10-PCS; 2018-12-13)
PROC: 04CN3ZZ Extirpation of Matter from Left Popliteal Artery, Percutaneous Approach (ICD-10-PCS; 2018-12-13)
PROC: B41G1ZZ Fluoroscopy of Left Lower Extremity Arteries using Low Osmolar Contrast (ICD-10-PCS; 2018-12-13)
PROC: B41F1ZZ Fluoroscopy of Right Lower Extremity Arteries using Low Osmolar Contrast (ICD-10-PCS; 2018-12-13)
PROC: 30233N1 Transfusion of Nonautologous Red Blood Cells into Peripheral Vein, Percutaneous Approach (ICD-10-PCS; 2018-12-15)
DX: A41.9 Sepsis, unspecified organism (principal); R65.21 Severe sepsis with septic shock; E43 Unspecified severe protein-calorie malnutrition; K65.9 Peritonitis, unspecified; N18.6 End stage renal disease; E87.1 Hypo-osmolality and hyponatremia; I82.432 Acute embolism and thrombosis of left popliteal vein; N17.9 Acute kidney failure, unspecified; C34.90 Malignant neoplasm of unspecified part of unspecified bronchus or lung; I13.2 Hypertensive heart and chronic kidney disease with heart failure and with stage 5 chronic kidney disease, or end stage renal disease; D68.9 Coagulation defect, unspecified; C78.6 Secondary malignant neoplasm of retroperitoneum and peritoneum; I50.32 Chronic diastolic (congestive) heart failure; C78.00 Secondary malignant neoplasm of unspecified lung; R18.8 Other ascites; Z99.2 Dependence on renal dialysis; G40.909 Epilepsy, unspecified, not intractable, without status epilepticus; E66.01 Morbid (severe) obesity due to excess calories; K63.5 Polyp of colon; E11.51 Type 2 diabetes mellitus with diabetic peripheral angiopathy without gangrene; I25.10 Atherosclerotic heart disease of native coronary artery without angina pectoris; I05.0 Rheumatic mitral stenosis; E87.6 Hypokalemia; D63.1 Anemia in chronic kidney disease; F32.9 Major depressive disorder, single episode, unspecified; Z79.01 Long term (current) use of anticoagulants; Z83.3 Family history of diabetes mellitus; Z82.49 Family history of ischemic heart disease and other diseases of the circulatory system; Z86.010 Personal history of colon polyps; Z90.49 Acquired absence of other specified parts of digestive tract; Z79.899 Other long term (current) drug therapy; Z88.5 Allergy status to narcotic agent; Z68.39 Body mass index [BMI] 39.0-39.9, adult
CPT/HCPCS: 36415; 36600; 71045; 73700; 80048; 80053; 80061; 80202; 82378; 82533; 82805; 82962; 83036; 83605; 83735; 84132; 84484; 85007; 85025; 85027; 85610; 85730; 86301; 86304; 86850; 86900; 86901; 86920; 87040; 87081; 87205; 87804; 93005; 93925; 93971; 94640; 94761; 96365; 97110; 97163; 97530; 99152; 99291; A6257; G0378; J1642; J1815; J2250; J2405; J2543; J7060; P9047; Q9967